=== PATIENT | female | born 1995 | race Caucasian/White ===

== ENCOUNTER 2016-09-12 16:45 | Emergency (ER) | payer OTHER ==
--- NOTE | 2016-09-12 19:18 | DIAGNOSTIC IMAGING REPORT ---
PROCEDURE: US ABDOMEN ULTRASOUND-LIMITED INDICATION: EPIGASTRIC ABDOMINAL PAIN TECHNIQUE: Friedman scale and color Doppler sonographic images of the abdomen were obtained. COMPARISON: None. FINDINGS: Gallbladder is normal. No evidence of gallstones. Common duct is normal (3 mm). Portions of the liver, pancreas, and right kidney are seen, and are normal. IMPRESSION: 1. Negative ultrasound of the gallbladder and right upper quadrant.
--- NOTE | 2016-09-12 20:33 | DIAGNOSTIC IMAGING REPORT ---
PROCEDURE: CT ABD/PELVIS WITH CONTRAST INDICATION: Abdominal pain. Nausea and vomiting. Elevated white blood count (19,000). TECHNIQUE: 95 ml of Isovue 300 were injected intravenously and axial images were obtained of the entire abdomen and pelvis with sagittal and coronal reformations. COMPARISON: Comparison is made to ultrasound of the gallbladder and right upper quadrant in the day (09/12/2016). FINDINGS: ABDOMEN: Gallbladder, liver, spleen, pancreas, kidneys, and aorta are normal. Mild increased fluid in the distal small bowel and colon. Bowel pattern is otherwise normal, including appendix. PELVIS: There is a partially collapsed 1.2 cm left ovarian cyst with small amount of free fluid. Uterus and adnexal structures are otherwise normal. IMPRESSION: 1. Mild increased fluid in the distal small bowel and colon. While this may be normal, consider enterocolitis. 2. There is a 1.2 cm partially collapsed left ovarian cyst with small amount of free fluid (may represent incidental finding). 3. Otherwise negative CT abdomen and pelvis. 4. Findings discussed Dr. Choco Graves. All CT scans at this facility use dose modulation, iterative reconstruction, and/or weight-based dosing when appropriate to reduce radiation dose to as low as reasonably achievable.
--- NOTE | 2016-09-12 21:32 | ED CLINICAL REPORT ---
Clinical Report - Physicians/Mid Levels [facility] [address] [place] [address] 09/12/2016 16:47 Patient: RACHID JULES Arrived- By private vehicle. Historian- patient. HISTORY OF PRESENT ILLNESS Chief Complaint: ABDOMINAL PAIN. This started today and is still present and worsening. It was gradual in onset and has been constant but is not gone now. At its maximum, severity described as moderate. When seen in the E.D., severity described as moderate. Modifying factors- worsened by movement. Relieved by rest. It is described as sharp and it is described as located in the epigastric area. The patient has had nausea. No vomiting or diarrhea. No recent travel. Similar symptoms previously: None. Recent medical care: Not recently seen/assessed. REVIEW OF SYSTEMS No constipation, black stools, hematemesis, bloody stools or fever. No headache or chest pain. She has had skin rash. All systems otherwise negative, except as recorded above. PAST HISTORY See nurses notes. Medications: None. Allergies: No Known Drug Allergy. SOCIAL HISTORY Smoker- current status unknown. Never smoker. History of occasional drug use: marijuana. No alcohol use. No recent travel. Is a local resident. FAMILY HISTORY No family history of gall bladder problems. ADDITIONAL NOTES The nursing notes have not been reviewed. PHYSICAL EXAM Vital Signs: 09/12/2016 16:58 BP: 125/77. 09/12/2016 16:51 HR: 98. RR: 20. O2 saturation: 100%. Temp: 98.1 F. Pain level now: 8/10. Blood pressure normal. Oxygen saturation normal. Appearance: Alert. Oriented X3. No acute distress. Eyes: Pupils equal, round and reactive to light. Eyes normal inspection. ENT: Ears normal. Nose normal. Pharynx normal. Neck: Normal inspection. Neck supple. CVS: Normal heart rate and rhythm. Heart sounds normal. Pulses normal. Respiratory: No respiratory distress. Breath sounds normal. Chest nontender. Abdomen: Soft. Mild tenderness in the epigastric area. No guarding, rebound tenderness or Huang's, obturator or psoas sign present. Bowel sounds normal. No organomegaly. No mass. Femoral pulses equal. Back: Normal inspection. Skin: Skin warm and dry. Normal skin color. No rash. Normal skin turgor. Extremities: Extremities exhibit normal ROM. No lower extremity edema. Neuro: Oriented X 3. No motor deficit. No sensory deficit. LABS, X-RAYS, AND EKG Abdominal CT: PROCEDURE: CT ABD/PELVIS WITH CONTRAST INDICATION: Abdominal pain. Nausea and vomiting. Elevated white blood count (19,000). TECHNIQUE: 95 ml of Isovue 300 were injected intravenously and axial images were obtained of the entire abdomen and pelvis with sagittal and coronal reformations. COMPARISON: Comparison is made to ultrasound of the gallbladder and right upper quadrant in the day (09/12/2016). FINDINGS: ABDOMEN: Gallbladder, liver, spleen, pancreas, kidneys, and aorta are normal. Mild increased fluid in the distal small bowel and colon. Bowel pattern is otherwise normal, including appendix. PELVIS: There is a partially collapsed 1.2 cm left ovarian cyst with small amount of free fluid. Uterus and adnexal structures are otherwise normal. IMPRESSION: 1. Mild increased fluid in the distal small bowel and colon. While this may be normal, consider enterocolitis. 2. There is a 1.2 cm partially collapsed left ovarian cyst with small amount of free fluid (may represent incidental finding). 3. Otherwise negative CT abdomen and pelvis. Study type: abdomen and pelvis. Abdominal CT performed with IV contrast. The study was independently viewed by me and interpreted by the radiologist. The study was discussed with the radiologist (via phone and pacs). Abdominal Sonogram: (no signs of acute cholecystitis. no stones.). The study was independently viewed by me and interpreted contemporaneously by me. Study included the gallbladder. Laboratory Tests: UA-Culture if indicated: (YEN: 09/12/2016 16:53) ( MsgRcvd 09/12/2016 17:30) Final results Test Result Flag Units (Reference) URINE COLOR YELLOW URINE APPEARANCE SL CLOUDY URINE GLUCOSE NEGATIVE (NEGATIVE) URINE BILIRUBIN NEGATIVE (NEGATIVE) URINE KETONE 3+ (NEGATIVE) URINE SPECIFIC GRAVITY 1.025 (1.010-1.030) URINE PH 6.0 (5.0-8.0) URINE PROTEIN NEGATIVE (NEGATIVE) URINE UROBILINOGEN 0.2 EU/dL (0.2-1.0) URINE NITRITE NEGATIVE (NEGATIVE) URINE BLOOD 1+ (NEGATIVE) URINE LEUK ESTERASE TRACE (NEGATIVE) URINE RBC 1-3 rbc/hpf (0-1) URINE WBC 3-5 wbc/hpf (0-1) URINE EPITHELIAL CELLS >15 EPI/hpf (0-5) URINE BACTERIA MODERATE (2+ TO 3+) (NONE SEEN) URINE COMMENT CULTURE INDICATED 1+ MUCUSURINE CULTURES ARE SET-UP BASED ON THE FOLLOWING CRITERIA:POSITIVE NITRITEPOSITIVE LEUKOCYTE ESTERASEGREATER THAN 10 WHITE BLOOD CELLSMODERATE (2+) OR GREATER BACTERIA CBC w Diff: (EYN: 09/12/2016 17:00) ( MsgRcvd 09/12/2016 18:10) Final results Test Result Flag Units (Reference) WHITE BLOOD COUNT 19.0 H K/uL (4.5-11.5) RED BLOOD COUNT 5.29 H M/uL (4.00-5.20) HEMOGLOBIN 15.9 gm/dL (12.0-16.0) HEMATOCRIT 48.3 H % (36.0-46.0) MEAN CELL VOLUME 91 fL (80-100) MEAN CORPUSCULAR HGB 30 pg (26-34) MEAN CORPUSCULAR HGB CONC 33 g/dL (31-37) RED CELL DISTRIBUTION WIDTH 13.1 % (11.6-14.8) PLATELET COUNT 348 K/uL (150-400) NEUTROPHIL % 91.8 H % (50-75) LYMPH % 4.3 L % (25-40) MONO % 1.4 L % (3-14) EOSINOPHIL % 2.4 % (0-4) BASOPHIL % 0.1 % (0-2) CMP: (YEN: 09/12/2016 17:00) ( MsgRcvd 09/12/2016 18:46) Final results Test Result Flag Units (Reference) GLUCOSE 90 mg/dL (70-110) BUN 16 mg/dL (7-18) CREATININE 0.6 mg/dL (0.6-1.3) Estimated GFR >60 mL/min Estimated GFR- >60 mL/min Note: Persistent reduction over 3 months in eGFR<60 mL/min/1.73 m2 defines CKD. Patients with eGFR values>=60 mL/min/1.73 m2 may also have CKD if evidence ofpersistent proteinuria. Additional information may be foundat [email or web address].org. SODIUM 140 mmol/L (136-145) POTASSIUM 3.8 mmol/L (3.5-5.1) CHLORIDE 105 mmol/L (98-107) CARBON DIOXIDE 24 mmol/L (21-32) CALCIUM 8.6 mg/dL (8.5-10.1) TOTAL PROTEIN 7.6 g/dL (6.4-8.2) ALBUMIN 4.2 g/dL (3.3-5.0) BILIRUBIN, TOTAL 0.6 mg/dL (0.0-1.0) ALKALINE PHOSPHATASE 67 U/L (46-116) AST (SGOT) 11 L U/L (15-37) ALT (SGPT) 20 U/L (12-78) LIPASE 95 U/L (73-393) BETA HCG, QUANTITATIVE <1 mIU/mL REFERENCE RANGE:Adult Males: <2 mIU/mLNon- Females: <6 mIU/mL Females:Approximate Approximate hCGGestational Age Range (mIU/mL) 0-1 week 0-501-2 weeks 40-3002-3 weeks 100-84462-4 weeks 500-73811-2 months 5,000-200,0002-3 months 10,000-100,0002nd trimester 3,000-50,0003rd trimester 1,000-50,000 Culture, Strep Screen: (YEN: 09/12/2016 21:07) ( MsgRcvd 09/12/2016 21:26) Final results Test Result Flag Units (Reference) RAPID STREP SCREEN - THROAT CALLED TO: HEMAL@2125 -- DATE: 09/12/16 POSITIVE SCREEN: RAPID STREP SCREEN: POSITIVE FOR GROUP A STREP . PROGRESS AND PROCEDURES Course of Care: the patient is a pleasant 21 yo female presenting for evaluation of abdominal pain. Pain is in the epigastric region on history. This time differenial diagnosis includes biliary colic, gastritis, acute cholecystitis, pancreatitis, PUD. Work ordered. Patient agreeable to plan. Morphine for pain and zofran for nausea ordered. Patient's work up shows no asigns of stone or acute gilda. Lab test show significant wbc. Patient still in pain and looks uncomfortable. Had discussion with patient in regards to work up and elevated white blood cell count. Discussed possibility of atypical appy presentation. Patient agreeable to CT scan given the risk and benefits. CT scan ordered. Ptaient's CT scan does not show any acute abnormalities that would adequately explain pain symptoms. patient is still in distress. Had discussion about other options and admission. Had further discussion about additional symptoms. Patient did mention having a sore throat. Occasionally patient's will have abdominal pain with a sore throat. No exudates were found on exam however due to presentation, would be worth evaluation. Rapid strep came back positive. Patient provided abx and had discussion about strep throat presentations. Do not feel patient has more sinister etiology for pain symptoms today. She is non-toxic and feels better after toradol was given, which was initially held due to concerns about possible surgical abdomen. Discussed with patient work up, diagnosis, home care, follow up, and return precautions. All questions answered. Patient expressed understanding of these instructions and was agreeable to them. Disposition: Discharged. Condition: good. CLINICAL IMPRESSION Acute epigastric abdominal pain. 09/12/2016 20:13 HR: 99. O2 saturation: 97%. 09/12/2016 19:24 BP: 110/61. HR: 99. RR: 20. O2 saturation: 98%. Mild nausea. Blood pressure normal. Oxygen saturation normal. Moderate leukocytosis. No bandemia. Acute streptococcal pharyngitis INSTRUCTIONS Warnings: GENERAL WARNINGS: Return or contact your physician immediately if your condition worsens or changes unexpectedly, if not improving as expected, or if other problems arise. SPECIFICALLY, return if you develop pain, fever, vomiting, the inability to keep fluids down, blood in vomitus, blood in diarrhea, fainting or lightheadedness. Your Current Medications: CONTINUE TAKING THE FOLLOWING MEDICATIONS: None*. Prescription Medications: Hydrocodone/APAP 5mg / 325mg: take 1 orally every 6 hours as needed for pain. Dispense twelve (12). No refill. Motrin 600 mg tablets: take 1 tablet orally every 6 hours as needed for pain or fever. Dispense thirty (30). No refill. Substitution is permissible. (take with food) Penicillin V 500 mg: take 1 tab orally every 12 hours for 10 days. Dispense twenty (20). No refills. (recheck today's concerns) Follow-up: Return to the emergency department as needed. Follow up with your doctor in three days. Reason for referral: recheck today's concerns. Summary of care provided to patient and family via paper. Screening today revealed the patient's blood pressure to be in the normal range. The patient should follow up with a primary care provider for blood pressure management. Understanding of the discharge instructions verbalized by patient and parent. (Electronically signed by Choco Graves Dr. 09/18/2016 14:58)
--- NOTE | 2016-09-12 21:32 | ED NURSING NOTES ---
Clinical Report - Nurses [facility] [address] [place] [address] 09/12/2016 16:47 Patient: RACHID JULES TRIAGE Acuity: LEVEL 3. Chief Complaint: ABDOMINAL PAIN, NAUSEA, VOMITING and DIARRHEA. Alert. No acute distress. --16:57 Matteo Galicia R.N. 16:51 09/12/16. HR: 98. RR: 20. O2 saturation: 100%. Temp: 98.1 F (oral). Pain level now: 8/10. --16:57 Matteo Galicia R.N. 16:58 09/12/16. BP: 125/77. --16:58 Matteo Galicia R.N. Weight: 97.5 kg stated. Height/Length: 64 inches Per Patient. BMI: 36.9. --16:56 Matteo Galicia R.N. Medications None. --16:54 Matteo Galicia R.N. Medication/allergy information source: the patient. --16:57 Matteo Galicia R.N. Allergies No Known Drug Allergy. --16:54 Matteo Galicia R.N. History Arrived by private vehicle. Historian: patient. Accompanied by father. Primary physician (none). This started today. Describes the quality as "pain" and sharp. Relates location as generalized across abdomen and in the periumbilical area. Notes pain level as 8/10 at maximum. Reports last BM was today. 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 PAST MEDICAL HX: Immunizations: up-to-date. Last normal menstrual period- Aug 21 2016. Sexual history - sexually active. Uses condoms. SOCIAL HX: Current every day light tobacco smoker (cigarette)- less than 1/2 a pack per day. History of weekly drug use: marijuana. No alcohol use. No recent travel. FALL RISK ASSESSMENT: Fall risk assessment completed. No fall risk identified. NUTRITIONAL RISK ASSESSMENT: The nutritional risk assessment revealed no deficiencies. FUNCTIONAL ASSESSMENT: Functional assessment: no impairments noted. LEARNING NEEDS ASSESSMENT: The learning needs assessment revealed no barriers. SKIN INTEGRITY ASSESSMENT: Skin integrity risk assessment completed. No skin integrity risk identified. --16:57 Matteo Galicia R.N. Assessment GENERAL / NEURO / PSYCH: Alert. Oriented X 4. Appears in no acute distress. Appears in pain. RESPIRATORY: Respirations not labored. CVS: Capillary refill less than 2 seconds. GI / : Abdomen soft. Abdominal tenderness. SKIN: Mucous membranes are pink. Skin is warm and dry. --16:57 Matteo Galicia R.N. Interventions ID band on patient. To treatment room. --16:57 Matteo Galicia R.N. PHYSICAL ASSESSMENT 16:58 09/12/16. Ambulatory to room. GENERAL / NEURO / PSYCH: Alert. Oriented X 4. Appears in no acute distress. Appears in pain and anxious. HEENT: Mucous membranes are pink. RESPIRATORY: Respirations not labored. CVS: Capillary refill less than 2 seconds. GI / : Abdomen soft. Abdominal tenderness. SKIN: Skin is pale. Skin is warm and dry. --16:58 Matteo Galicia R.N. NURSING PROGRESS NOTES The initial plan of care for this patient includes an assessment with efforts to address the presence of pain. This plan of care was discussed with the patient. Patient gowned. Head of bed elevated. Warming measures: blanket applied. Reassurance given. Patient identifiers checked. Call light placed in reach. Side rails up x 1. Bed placed in lowest position. Brakes of bed on. Patient ready for evaluation- chart flagged and ED physician and IDENTIFICATION OFFICER notified. --16:59 Matteo Galicia R.N. 16:59 09/12/16. Checked patient name and birthdate: patient confirmed. Instructions provided to collect clean catch urine and patient verbalized understanding. Clean catch urine collected with return of yellow-colored clear urine; sample sent to lab for urinalysis and HCG. Specimen labeled in the presence of the patient. --16:59 Matteo Galicia R.N. 17:26 09/12/2016 Site #1 started via IV in the right forearm with an 20g angiocath, with aseptic technique and good blood return; two attempts. Saline lock flushed with 10 mL saline. --17:26 Matteo Galicia R.N. 17:27 09/12/2016 Zofran (Ondansetron HCl) IVP 4 mg given over 2 minute(s) via site #1. Allergies verified and confirmed 5 rights. IV patency established. IV site checked: no pain, redness, or swelling. IV flushed thoroughly pre- and post-medication administration. IVP given by RN. --17:27 Matteo Galicia R.N. 17:28 09/12/2016 Morphine IVP 4 mg given over 2 minute(s) via site #1. Allergies verified, confirmed 5 rights and sedative warning given to the patient. IV patency established. IV site checked: no pain, redness, or swelling. IV flushed thoroughly pre- and post-medication administration. IVP given by RN. --17:28 Matteo Galicia R.N. 17:31 09/12/16. copier and printer field technician at the patient's bedside. --17:31 Matteo Galicia R.N. 17:43 09/12/16. radiology special procedure tech at the patient's bedside. --17:43 Matteo Galicia R.N. 19:06 09/12/16. Care transferred and report given (BAILEY Love). --19:06 Matteo Galicia R.N. 19:16 09/12/16. BP: 103/64. HR: 98. RR: 16. O2 saturation: 100% on room air. Temp: 99.6 F (oral). Pain level now: 7/10. --19:17 Matteo Galicia R.N. Care transferred and report received (report received from matteo). --19:20 Ivan Morgan R.N. 19:24 09/12/2016 Morphine IVP 4 mg given over 2 minute(s) via site #1. Allergies verified, confirmed 5 rights and sedative warning given to the patient. IV patency established. IV site checked: no pain, redness, or swelling. IV flushed thoroughly pre- and post-medication administration. IVP given by RN. --19:24 Ivan Morgan R.N. 19:24 09/12/16. BP: 110/61. HR: 99. RR: 20. O2 saturation: 98%. --19:27 Ivan Morgan R.N. 20:13 09/12/16. HR: 99. O2 saturation: 97%. --20:13 Ivan Morgan R.N. 21:19 09/12/2016 Toradol IVP 30 mg given over 2 minute(s) via site #1. Allergies verified and confirmed 5 rights. IV patency established. IV site checked: no pain, redness, or swelling. IV flushed thoroughly pre- and post-medication administration. IVP given by RN. --21:19 Ivan Morgan R.N. 21:25 09/12/2016 Tylenol (Acetaminophen) PO 650 mg given. Allergies verified and confirmed 5 rights. --21:25 Ivan Morgan R.N. 21:45 09/12/2016 Penicillin V Potassium PO Tablets 500 mg given. Allergies verified and confirmed 5 rights. --21:49 Jacqueline Reyna R.N. DISPOSITION / DISCHARGE 21:49 09/12/2016 Site #1 removed upon discharge. Catheter intact. Manual pressure and bandage applied. --21:49 Jacqueline Reyna R.N. 21:49 09/12/16. BP: 118/70. HR: 99. RR: 16. O2 saturation: 100% on room air. Temp: deferred. Griffith-Tyler pain scale: 8/10. --21:50 Jacqueline Reyna R.N. Locked/Released at 09/12/2016 22:33 by Ivan Morgan R.N.
--- NOTE | 2016-09-12 21:32 | ED ORDER SUMMARY ---
..... Patient: RACHID JULES OrderSheet [facility] VisitID: [id number] [place] [address] 21y, F Registration Date/Time: 09/12/2016 ORDER SHEET Weight: 97.5 kg (stated) Allergies: No Known Drug Allergy GENERAL ORDERS: US Abdomen Limited (No) Urgent (17:10 09/12/2016 Clem Avalos) (Ack 17:13 NHouse ER Tech1) (18:14 NHouse ER Tech1) CBC w Diff Urgent (17:11 09/12/2016 Clem Avalos) (Ack 17:13 NHouse ER Tech1) (17:28 MWinterer R.N.) CMP Urgent (17:11 09/12/2016 Clem Avalos) (Ack 17:13 NHouse ER Tech1) (17:28 MWinterer R.N.) UA-Culture if indicated Urgent (17:11 09/12/2016 Clem Avalos) (Ack 17:13 NHouse ER Tech1) (17:28 MWinterer R.N.) Lipase Urgent (17:11 09/12/2016 Clem Avalos) (Ack 17:13 NHouse ER Tech1) (17:28 MWinterer R.N.) Serum Quantitative Urgent (17:11 09/12/2016 Clem Avalos) (Ack 17:13 NHouse ER Tech1) (17:28 MWinterer R.N.) CT Abd/Pel w Cont (No) (N/A) Urgent (19:20 09/12/2016 Clem Avalos) (Ack 19:23 NHouse ER Tech1) (20:03 RFay) Culture, Strep Screen Urgent (21:04 09/12/2016 Clem Avalos) (Ack 21:22 NHouse ER Tech1) (21:42 RCollier R.N.) MEDICATION ORDERS: Tylenol PO 650 mg (NOW) (21:22 09/12/2016 Clem Avalos) (21:25 DBeyer R.N.) Penicillin V Potassium PO 500 mg (NOW) (21:30 09/12/2016 Clem Avalos) (Ack 21:41 RCollier R.N.) (21:49 RCollier R.N.) IV FLUIDS: Morphine IV 4 mg (HIGH ALERT MEDICATION, NOW) (17:11 09/12/2016 Clem Avalos) (Ack 17:13 MWinterer R.N.) (17:28 MWinterer R.N.) Zofran IV 4 mg (NOW) (17:11 09/12/2016 Clem Avalos) (Ack 17:14 MWinterer R.N.) (17:27 MWinterer R.N.) Morphine IV 8 mg (HIGH ALERT MEDICATION, NOW) (19:20 09/12/2016 lCem Avalos) (19:24 DBeyer R.N.) Toradol IV 30 mg (NOW) (21:05 09/12/2016 Clem Avalos) (21:19 DBeyer R.N.) ORDER SHEET NOTES: [Electronically signed by Ivan Morgan R.N. (22:33 09/12/2016)] [Electronically signed by Choco Graves Dr. (14:58 09/18/2016)] [Electronically locked/signed by Ivan Morgan R.N. (22:33 09/12/2016)]
--- NOTE | 2016-09-12 21:32 | ED NURSING NOTES ---
Clinical Report - Nurses [facility] [address] [place] [address] 09/12/2016 16:47 Patient: RACHID JULES TRIAGE Acuity: LEVEL 3. Chief Complaint: ABDOMINAL PAIN, NAUSEA, VOMITING and DIARRHEA. Alert. No acute distress. --16:57 Matteo Galicia R.N. 16:51 09/12/16. HR: 98. RR: 20. O2 saturation: 100%. Temp: 98.1 F (oral). Pain level now: 8/10. --16:57 Matteo Galicia R.N. 16:58 09/12/16. BP: 125/77. --16:58 Matteo Galicia R.N. Weight: 97.5 kg stated. Height/Length: 64 inches Per Patient. BMI: 36.9. --16:56 Matteo Galicia R.N. Medications None. --16:54 Matteo Galicia R.N. Medication/allergy information source: the patient. --16:57 Matteo Galicia R.N. Allergies No Known Drug Allergy. --16:54 Matteo Galicia R.N. History Arrived by private vehicle. Historian: patient. Accompanied by father. Primary physician (none). This started today. Describes the quality as "pain" and sharp. Relates location as generalized across abdomen and in the periumbilical area. Notes pain level as 8/10 at maximum. Reports last BM was today. 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 PAST MEDICAL HX: Immunizations: up-to-date. Last normal menstrual period- Aug 21 2016. Sexual history - sexually active. Uses condoms. SOCIAL HX: Current every day light tobacco smoker (cigarette)- less than 1/2 a pack per day. History of weekly drug use: marijuana. No alcohol use. No recent travel. FALL RISK ASSESSMENT: Fall risk assessment completed. No fall risk identified. NUTRITIONAL RISK ASSESSMENT: The nutritional risk assessment revealed no deficiencies. FUNCTIONAL ASSESSMENT: Functional assessment: no impairments noted. LEARNING NEEDS ASSESSMENT: The learning needs assessment revealed no barriers. SKIN INTEGRITY ASSESSMENT: Skin integrity risk assessment completed. No skin integrity risk identified. --16:57 Matteo Gailcia R.N. Assessment GENERAL / NEURO / PSYCH: Alert. Oriented X 4. Appears in no acute distress. Appears in pain. RESPIRATORY: Respirations not labored. CVS: Capillary refill less than 2 seconds. GI / : Abdomen soft. Abdominal tenderness. SKIN: Mucous membranes are pink. Skin is warm and dry. --16:57 Matteo Galicia R.N. Interventions ID band on patient. To treatment room. --16:57 Matteo Galicia R.N. PHYSICAL ASSESSMENT 16:58 09/12/16. Ambulatory to room. GENERAL / NEURO / PSYCH: Alert. Oriented X 4. Appears in no acute distress. Appears in pain and anxious. HEENT: Mucous membranes are pink. RESPIRATORY: Respirations not labored. CVS: Capillary refill less than 2 seconds. GI / : Abdomen soft. Abdominal tenderness. SKIN: Skin is pale. Skin is warm and dry. --16:58 Matteo Galicia R.N. NURSING PROGRESS NOTES The initial plan of care for this patient includes an assessment with efforts to address the presence of pain. This plan of care was discussed with the patient. Patient gowned. Head of bed elevated. Warming measures: blanket applied. Reassurance given. Patient identifiers checked. Call light placed in reach. Side rails up x 1. Bed placed in lowest position. Brakes of bed on. Patient ready for evaluation- chart flagged and ED physician and N[employer]ITION [employer]NS[employer] notified. --16:59 Matteo Galicia R.N. 16:59 09/12/16. Checked patient name and birthdate: patient confirmed. Instructions provided to collect clean catch urine and patient verbalized understanding. Clean catch urine collected with return of yellow-colored clear urine; sample sent to lab for urinalysis and HCG. Specimen labeled in the presence of the patient. --16:59 Matteo Galicia R.N. 17:26 09/12/2016 Site #1 started via IV in the right forearm with an 20g angiocath, with aseptic technique and good blood return; two attempts. Saline lock flushed with 10 mL saline. --17:26 Matteo Galicia R.N. 17:27 09/12/2016 Zofran (Ondansetron HCl) IVP 4 mg given over 2 minute(s) via site #1. Allergies verified and confirmed 5 rights. IV patency established. IV site checked: no pain, redness, or swelling. IV flushed thoroughly pre- and post-medication administration. IVP given by RN. --17:27 Matteo Galicia R.N. 17:28 09/12/2016 Morphine IVP 4 mg given over 2 minute(s) via site #1. Allergies verified, confirmed 5 rights and sedative warning given to the patient. IV patency established. IV site checked: no pain, redness, or swelling. IV flushed thoroughly pre- and post-medication administration. IVP given by RN. --17:28 Matteo Galicia R.N. 17:31 09/12/16. classroom technology technician at the patient's bedside. --17:31 Matteo Galicia R.N. 17:43 09/12/16. training technician at the patient's bedside. --17:43 Matteo Galicia R.N. 19:06 09/12/16. Care transferred and report given (BAILEY Love). --19:06 Matteo Galicia R.N. 19:16 09/12/16. BP: 103/64. HR: 98. RR: 16. O2 saturation: 100% on room air. Temp: 99.6 F (oral). Pain level now: 7/10. --19:17 Matteo Galicia R.N. Care transferred and report received (report received from matteo). --19:20 Ivan Morgan R.N. 19:24 09/12/2016 Morphine IVP 4 mg given over 2 minute(s) via site #1. Allergies verified, confirmed 5 rights and sedative warning given to the patient. IV patency established. IV site checked: no pain, redness, or swelling. IV flushed thoroughly pre- and post-medication administration. IVP given by RN. --19:24 Ivan Morgan R.N. 19:24 09/12/16. BP: 110/61. HR: 99. RR: 20. O2 saturation: 98%. --19:27 Ivan Morgan R.N. 20:13 09/12/16. HR: 99. O2 saturation: 97%. --20:13 Ivan Morgan R.N. 21:19 09/12/2016 Toradol IVP 30 mg given over 2 minute(s) via site #1. Allergies verified and confirmed 5 rights. IV patency established. IV site checked: no pain, redness, or swelling. IV flushed thoroughly pre- and post-medication administration. IVP given by RN. --21:19 Ivan Morgan R.N. 21:25 09/12/2016 Tylenol (Acetaminophen) PO 650 mg given. Allergies verified and confirmed 5 rights. --21:25 Ivan Morgan R.N. 21:45 09/12/2016 Penicillin V Potassium PO Tablets 500 mg given. Allergies verified and confirmed 5 rights. --21:49 Jacqueline Reyna R.N. DISPOSITION / DISCHARGE 21:49 09/12/2016 Site #1 removed upon discharge. Catheter intact. Manual pressure and bandage applied. --21:49 Jacqueline Reyna R.N. 21:49 09/12/16. BP: 118/70. HR: 99. RR: 16. O2 saturation: 100% on room air. Temp: deferred. Griffith-Tyler pain scale: 8/10. --21:50 Jacqueline Reyna R.N. Locked/Released at 09/12/2016 22:33 by Ivan Morgan R.N.
--- NOTE | 2016-09-12 21:32 | ED ORDER SUMMARY ---
..... Patient: RACHID JULES OrderSheet [facility] VisitID: [id number] [place] [address] 21y, F Registration Date/Time: 09/12/2016 ORDER SHEET Weight: 97.5 kg (stated) Allergies: No Known Drug Allergy GENERAL ORDERS: US Abdomen Limited (No) Urgent (17:10 09/12/2016 Clem Avalos) (Ack 17:13 NHouse ER Tech1) (18:14 NHouse ER Tech1) CBC w Diff Urgent (17:11 09/12/2016 Clem Avalos) (Ack 17:13 NHouse ER Tech1) (17:28 MWinterer R.N.) CMP Urgent (17:11 09/12/2016 Clem Avalos) (Ack 17:13 NHouse ER Tech1) (17:28 MWinterer R.N.) UA-Culture if indicated Urgent (17:11 09/12/2016 Clem Avalos) (Ack 17:13 NHouse ER Tech1) (17:28 MWinterer R.N.) Lipase Urgent (17:11 09/12/2016 Clem Avalos) (Ack 17:13 NHouse ER Tech1) (17:28 MWinterer R.N.) Serum Quantitative Urgent (17:11 09/12/2016 Clem Avalos) (Ack 17:13 NHouse ER Tech1) (17:28 MWinterer R.N.) CT Abd/Pel w Cont (No) (N/A) Urgent (19:20 09/12/2016 Clem Avalos) (Ack 19:23 NHouse ER Tech1) (20:03 RFay) Culture, Strep Screen Urgent (21:04 09/12/2016 Clem Avalos) (Ack 21:22 NHouse ER Tech1) (21:42 RCollier R.N.) MEDICATION ORDERS: Tylenol PO 650 mg (NOW) (21:22 09/12/2016 Clem Avalos) (21:25 DBeyer R.N.) Penicillin V Potassium PO 500 mg (NOW) (21:30 09/12/2016 Clem Avalos) (Ack 21:41 RCollier R.N.) (21:49 RCollier R.N.) IV FLUIDS: Morphine IV 4 mg (HIGH ALERT MEDICATION, NOW) (17:11 09/12/2016 Clem Avalos) (Ack 17:13 MWinterer R.N.) (17:28 MWinterer R.N.) Zofran IV 4 mg (NOW) (17:11 09/12/2016 Clem Avalos) (Ack 17:14 MWinterer R.N.) (17:27 MWinterer R.N.) Morphine IV 8 mg (HIGH ALERT MEDICATION, NOW) (19:20 09/12/2016 Clem Avalos) (19:24 DBeyer R.N.) Toradol IV 30 mg (NOW) (21:05 09/12/2016 Clem Avalos) (21:19 DBeyer R.N.) ORDER SHEET NOTES: [Electronically signed by Ivan Morgan R.N. (22:33 09/12/2016)] [Electronically signed by Choco Graves Dr. (14:58 09/18/2016)] [Electronically locked/signed by Ivan Morgan R.N. (22:33 09/12/2016)]
--- NOTE | 2016-09-18 14:58 | ED DISCHARGE INSTRUCTIONS ---
Patient: RACHID JULES General Instructions [facility] VisitID: [id number] [place] [address] 21y, F Registration Date/Time: 09/12/2016 Acute epigastric abdominal pain. 09/12/2016 20:13 HR: 99. O2 saturation: 97%. 09/12/2016 19:24 BP: 110/61. HR: 99. RR: 20. O2 saturation: 98%. Mild nausea. Blood pressure normal. Oxygen saturation normal. Moderate leukocytosis. No bandemia. Acute streptococcal pharyngitis INSTRUCTIONS Warnings: GENERAL WARNINGS: Return or contact your physician immediately if your condition worsens or changes unexpectedly, if not improving as expected, or if other problems arise. SPECIFICALLY, return if you develop pain, fever, vomiting, the inability to keep fluids down, blood in vomitus, blood in diarrhea, fainting or lightheadedness. Your Current Medications: CONTINUE TAKING THE FOLLOWING MEDICATIONS: None*. Prescription Medications: Hydrocodone/APAP 5mg / 325mg: take 1 orally every 6 hours as needed for pain. Dispense twelve (12). No refill. Motrin 600 mg tablets: take 1 tablet orally every 6 hours as needed for pain or fever. Dispense thirty (30). No refill. Substitution is permissible. (take with food) Penicillin V 500 mg: take 1 tab orally every 12 hours for 10 days. Dispense twenty (20). No refills. (recheck today's concerns) Follow-up: Return to the emergency department as needed. Follow up with your doctor in three days. Reason for referral: recheck today's concerns. Summary of care provided to patient and family via paper. Screening today revealed the patient's blood pressure to be in the normal range. The patient should follow up with a primary care provider for blood pressure management. Understanding of the discharge instructions verbalized by patient and parent. ADDITIONAL INFORMATION Abdominal Pain, Unknown Cause (Female) The exact cause of your abdominal (stomach) pain is not certain. This does not mean that this is something to worry about, or the right tests were not done. Everyone likes to know the exact cause of the problem, but sometimes with abdominal pain, there is no clear-cut cause, and this could be a good thing. The good news is that your symptoms can be treated, and you will feel better. Your condition does not seem serious now; however, sometimes the signs of a serious problem may take more time to appear. For this reason,it is important for you to watch for any new symptoms, problems,or worsening of your condition. Over the next few days, the abdominal pain may come and go, or be continuous. Other common symptoms can include nausea and vomiting. Sometimes it can be difficult to tell if you feel nauseous, you may just feel bad and not associate that feeling with nausea. Constipation, diarrhea, and a fever may go along with the pain. The pain may continue even if treated correctly over the following days. Depending on how things go, sometimes the cause can become clear and may require further or different treatment. Additional evaluations, medications, or tests may be needed. Home care Your health care provider may prescribe medications for pain, symptoms, or an infection. Follow the health care provider's instructions for taking these medications. General care Rest until your next exam. No strenuous activities. Try to find positions that ease discomfort. A small pillow placed on the abdomen may help relieve pain. Something warm on your abdomen (such as a heating pad) may help, but be careful not to burn yourself. Diet Do not force yourself to eat, especially if having cramps, vomiting, or diarrhea. Water is important so you do not get dehydrated. Soup may also be good. Sports drinks may also help, especially if they are not too acidic. Make sure you don't drink sugary drinks as this can make things worse. Take liquids in small amounts. Do not guzzle them. Caffeine sometimes makes the pain and cramping worse. Avoid dairy products if you have vomiting or diarrhea. Don't eat large amounts at a time. Wait a few minutes between bites. Eat a diet low in fiber (called a low-residue diet). Foods allowed include refined breads, white rice, fruit and vegetable juices without pulp, tender meats. These foods will pass more easily through the intestine. Avoid whole-grain foods, whole fruits and vegetables, meats, seeds and nuts, fried or fatty foods, dairy, alcohol and spicy foods until your symptoms go away. Follow-up care Follow up with your health care provider as instructed, or if your pain does not begin to improve in the next 24 hours. When to seek medical care Seek prompt medical care if any of the following occur: Pain gets worse or moves to the right lower abdomen New or worsening vomiting or diarrhea Swelling of the abdomen Unable to pass stool for more than three days Fever of 100.4F (38C) or higher, or as directed by your healthcare provider. Blood in vomit or bowel movements (dark red or black color) Jaundice (yellow color of eyes and skin) Weakness, dizziness Chest, arm, back, neck or jaw pain Unexpected vaginal bleeding or missed period Call 911 Call emergency services if any of the following occur: Trouble breathing Confusion Fainting or loss of consciousness Rapid heart rate Seizure Pharyngitis: Strep [Confirmed] Your test for strep throat was positive. Strep throat is a contagious illness. It is spread by coughing, kissing or by touching others after touching your mouth or nose. Symptoms include throat pain which is worse with swallowing, aching all over, headache and fever. You will be treated with an antibiotic which should make you start to feel better within 1-2 days. Home Care: Rest at home and drink plenty of fluids to avoid dehydration. No school or work for the first two days on antibiotics. You will not be contagious after this time and if you are feeling better, you can return to school or work. Take your antibiotics for a full 10 days, even if you feel better after the first few days of treatment. This is very important to prevent heart or kidney disease that can result as a complication of untreated strep throat infection. Children: Use acetaminophen (Tylenol) for fever, fussiness or discomfort. In infants over six months of age, you may use ibuprofen (Children's Motrin) instead of Tylenol. [NOTE: If your child has chronic liver or kidney disease or ever had a stomach ulcer or GI bleeding, talk with your doctor before using these medicines.] (Aspirin should never be used in anyone under 18 years of age who is ill with a fever. It may cause severe liver damage.)Adults: You may use acetaminophen (Tylenol) or ibuprofen (Motrin, Advil) to control pain or fever, unless another medicine was prescribed for this. [NOTE: If you have chronic liver or kidney disease or ever had a stomach ulcer or GI bleeding, talk with your doctor before using these medicines.] Throat lozenges or sprays (Chloraseptic and others) will reduce pain. Gargling with warm salt water will also reduce throat pain. Dissolve 1/2 teaspoon of salt in 1 glass of warm water. This is especially useful just before meals. Follow Up with your doctor or as directed by our staff if you are not improving over the next week. Get Prompt Medical Attention if any of the following occur: Fever of 100.4F (38C) oral or higher, not better with fever medication New or worsening ear pain, sinus pain or headache Painful lumps in the back of your neck Unable to swallow liquids or open your mouth wide due to throat pain Trouble breathing or noisy breathing Muffled voice New rash Hydrocodone Bitartrate, Acetaminophen Oral tablet What is this medicine? ACETAMINOPHEN; HYDROCODONE (a set a CORNELIO mariusz fen; daniel droe KOE done) is a pain reliever. It is used to treat mild to moderate pain. How should I use this medicine? Take this medicine by mouth. Swallow it with a full glass of water. Follow the directions on the prescription label. If the medicine upsets your stomach, take the medicine with food or milk. Do not take more than you are told to take. Talk to your dairy lab technician regarding the use of this medicine in children. This medicine is not approved for use in children. What side effects may I notice from receiving this medicine? Side effects that you should report to your doctor or health health care marketing specialist as soon as possible: allergic reactions like skin rash, itching or hives, swelling of the face, lips, or tongue breathing problems confusion feeling faint or lightheaded, falls stomach pain yellowing of the eyes or skin Side effects that usually do not require medical attention (report to your doctor or health health care marketing specialist if they continue or are bothersome): nausea, vomiting stomach upset What may interact with this medicine? alcohol antihistamines isoniazid medicines for depression, anxiety, or psychotic disturbances medicines for sleep muscle relaxants naltrexone narcotic medicines (opiates) for pain phenobarbital ritonavir tramadol What if I miss a dose? If you miss a dose, take it as soon as you can. If it is almost time for your next dose, take only that dose. Do not take double or extra doses. Where should I keep my medicine? Keep out of the reach of children. This medicine can be abused. Keep your medicine in a safe place to protect it from theft. Do not share this medicine with anyone. Selling or giving away this medicine is dangerous and against the law. Store at room temperature between 15 and 30 degrees C (59 and 86 degrees F). Protect from light. Keep container tightly closed. Throw away any unused medicine after the expiration date. Discard unused medicine and used packaging carefully. Pets and children can be harmed if they find used or lost packages. What should I tell my health care provider before I take this medicine? They need to know if you have any of these conditions: brain tumor Crohn's disease, inflammatory bowel disease, or ulcerative colitis drink more than 3 alcohol-containing drinks per day drug abuse or addiction head injury heart or circulation problems kidney disease or problems going to the bathroom liver disease lung disease, asthma, or breathing problems an unusual or allergic reaction to acetaminophen, hydrocodone, other opioid analgesics, other medicines, foods, dyes, or preservatives or trying to get breast-feeding What should I watch for while using this medicine? Tell your doctor or health health care marketing specialist if your pain does not go away, if it gets worse, or if you have new or a different type of pain. You may develop tolerance to the medicine. Tolerance means that you will need a higher dose of the medicine for pain relief. Tolerance is normal and is expected if you take the medicine for a long time. Do not suddenly stop taking your medicine because you may develop a severe reaction. Your body becomes used to the medicine. This does NOT mean you are addicted. Addiction is a behavior related to getting and using a drug for a non-medical reason. If you have pain, you have a medical reason to take pain medicine. Your doctor will tell you how much medicine to take. If your doctor wants you to stop the medicine, the dose will be slowly lowered over time to avoid any side effects. You may get drowsy or dizzy when you first start taking the medicine or change doses. Do not drive, use machinery, or do anything that may be dangerous until you know how the medicine affects you. Stand or sit up slowly. There are different types of narcotic medicines (opiates) for pain. If you take more than one type at the same time, you may have more side effects. Give your health care provider a list of all medicines you use. Your doctor will tell you how much medicine to take. Do not take more medicine than directed. Call emergency for help if you have problems breathing. The medicine will cause constipation. Try to have a bowel movement at least every 2 to 3 days. If you do not have a bowel movement for 3 days, call your doctor or health health care marketing specialist. Too much acetaminophen can be very dangerous. Do not take Tylenol (acetaminophen) or medicines that contain acetaminophen with this medicine. Many non-prescription medicines contain acetaminophen. Always read the labels carefully. Ibuprofen Oral tablet What is this medicine? IBUPROFEN (eye BYOO proe fen) is a non-steroidal anti-inflammatory drug (NSAID). It is used for dental pain, fever, headaches or migraines, osteoarthritis, rheumatoid arthritis, or painful monthly periods. It can also relieve minor aches and pains caused by a cold, flu, or sore throat. How should I use this medicine? Take this medicine by mouth with a glass of water. Follow the directions on the prescription label. Take this medicine with food if your stomach gets upset. Try to not lie down for at least 10 minutes after you take the medicine. Take your medicine at regular intervals. Do not take your medicine more often than directed. A special MedGuide will be given to you by the pharmacist with each prescription and refill. Be sure to read this information carefully each time. Talk to your dairy lab technician regarding the use of this medicine in children. Special care may be needed. What side effects may I notice from receiving this medicine? Side effects that you should report to your doctor or health health care marketing specialist as soon as possible: allergic reactions like skin rash, itching or hives, swelling of the face, lips, or tongue black or bloody stools, blood in the urine or in vomit breathing problems changes in vision chest pain general ill feeling or flu-like symptoms nausea or vomiting redness, blistering, peeling or loosening of the skin, including inside the mouth slurred speech or weakness on one side of the body stomach pain unexplained weight gain or swelling unusually weak or tired yellowing of eyes or skin Side effects that usually do not require medical attention (report to your doctor or health health care marketing specialist if they continue or are bothersome): constipation or diarrhea dizziness gas or heartburn stomach upset What may interact with this medicine? Do not take this medicine with any of the following medications: cidofovir ketorolac methotrexate pemetrexed This medicine may also interact with the following medications: alcohol aspirin diuretics lithium other drugs for inflammation like prednisone warfarin What if I miss a dose? If you miss a dose, take it as soon as you can. If it is almost time for your next dose, take only that dose. Do not take double or extra doses. Where should I keep my medicine? Keep out of the reach of children. Store at room temperature between 15 and 30 degrees C (59 and 86 degrees F). Keep container tightly closed. Throw away any unused medicine after the expiration date. What should I tell my health care provider before I take this medicine? They need to know if you have any of these conditions: asthma cigarette smoker drink more than 3 alcohol containing drinks a day heart disease or circulation problems such as heart failure or leg edema (fluid retention) high blood pressure kidney disease liver disease stomach bleeding or ulcers an unusual or allergic reaction to ibuprofen, aspirin, other NSAIDS, other medicines, foods, dyes, or preservatives or trying to get breast-feeding What should I watch for while using this medicine? Tell your doctor or healthcare professional if your symptoms do not start to get better or if they get worse. This medicine does not prevent heart attack or stroke. In fact, this medicine may increase the chance of a heart attack or stroke. The chance may increase with longer use of this medicine and in people who have heart disease. If you take aspirin to prevent heart attack or stroke, talk with your doctor or health health care marketing specialist. Do not take other medicines that contain aspirin, ibuprofen, or naproxen with this medicine. Side effects such as stomach upset, nausea, or ulcers may be more likely to occur. Many medicines available without a prescription should not be taken with this medicine. This medicine can cause ulcers and bleeding in the stomach and intestines at any time during treatment. Ulcers and bleeding can happen without warning symptoms and can cause . To reduce your risk, do not smoke cigarettes or drink alcohol while you are taking this medicine. You may get drowsy or dizzy. Do not drive, use machinery, or do anything that needs mental alertness until you know how this medicine affects you. Do not stand or sit up quickly, especially if you are an older patient. This reduces the risk of dizzy or fainting spells. This medicine can cause you to bleed more easily. Try to avoid damage to your teeth and gums when you brush or floss your teeth. Penicillin V Potassium Oral tablet What is this medicine? PENICILLIN V (pen i SILL in V) is a penicillin antibiotic. It is used to treat certain kinds of bacterial infections. It will not work for colds, flu, or other viral infections. How should I use this medicine? Take this medicine by mouth with a full glass of water. Follow the directions on the prescription label. Take your medicine at regular intervals. Do not take your medicine more often than directed. Take all of your medicine as directed even if you think your are better. Do not skip doses or stop your medicine early. Talk to your dairy lab technician regarding the use of this medicine in children. While this drug may be prescribed for selected conditions, precautions do apply. What side effects may I notice from receiving this medicine? Side effects that you should report to your doctor or health health care marketing specialist as soon as possible: allergic reactions like skin rash or hives, swelling of the face, lips, or tongue breathing problems fever new symptoms of infection redness, blistering, peeling or loosening of the skin, including inside the mouth unusually weak or tired Side effects that usually do not require medical attention (report to your doctor or health health care marketing specialist if they continue or are bothersome): diarrhea headache nausea, vomiting sore mouth or tongue stomach upset What may interact with this medicine? control pills methotrexate other antibiotics probenecid some vaccines What if I miss a dose? If you miss a dose, take it as soon as you can. If it is almost time for your next dose, take only that dose. Do not take double or extra doses. Where should I keep my medicine? Keep out of the reach of children. Store at room temperature between 15 and 30 degrees C (59 and 86 degrees F). Keep container tightly closed. Throw away any unused medicine after the expiration date. What should I tell my health care provider before I take this medicine? They need to know if you have any of these conditions: asthma bowel disease, like colitis eczema kidney disease an unusual or allergic reaction to penicillin, cephalosporins, other antibiotics or medicines, foods, tartrazine or other dyes, or preservatives or trying to get breast-feeding What should I watch for while using this medicine? Tell your doctor or health health care marketing specialist if your symptoms do not improve. Do not treat diarrhea with over the counter products. Contact your doctor if you have diarrhea that lasts more than 2 days or if it is severe and watery. If you have diabetes, you may get a false-positive result for sugar in your urine. Check with your doctor or health health care marketing specialist. control pills may not work properly while you are taking this medicine. Talk to your doctor about using an extra method of control. You have been given the following additional information: Abdominal Pain, Unknown Cause, (Female) Pharyngitis, Strep (Confirmed) Hydrocodone Bitartrate, Acetaminophen Oral tablet Ibuprofen Oral tablet Penicillin V Potassium Oral tablet (Electronically signed by Choco Graves Dr. 09/18/2016 14:58)
--- NOTE | 2016-09-18 14:59 | ED MAR SUMMARY ---
..... Medication Administration Record [facility] [address] [place] [address] Patient: RACHID JULES Visit ID: [id number] 21y, F Weight: 97.5 kg Height/Length: 64 in BMI: 36.9 ALLERGIES: No Known Drug Allergy Given 17:09/12/2016 Enma Galicia R.N. Medication Administered: ZOFRAN [IVP] (ONDANSETRON HCL), Dose: 4 mg IVP over 2 minute(s), Site: #1 right forearm. Medication Ordered: Zofran IV 4 mg (NOW). Given 17:09/12/2016 Enma Galicia R.N. Medication Administered: MORPHINE [IVP], Dose: 4 mg IVP over 2 minute(s), Site: #1 right forearm. Medication Ordered: Morphine IV 4 mg (HIGH ALERT MEDICATION, NOW). Given 19:24 09/12/2016 Ivan Morgan R.N. Medication Administered: MORPHINE [IVP], Dose: 4 mg IVP over 2 minute(s), Site: #1 right forearm. Medication Ordered: Morphine IV 8 mg (HIGH ALERT MEDICATION, NOW). Given :09/12/2016 Ivan Morgan R.N. Medication Administered: TORADOL [IVP], Dose: 30 mg IVP over 2 minute(s), Site: #1 right forearm. Medication Ordered: Toradol IV 30 mg (NOW). Given :25 09/12/2016 Ivan Morgan R.N. Medication Administered: TYLENOL [PO] (ACETAMINOPHEN), Dose: 650 mg PO. Medication Ordered: Tylenol PO 650 mg (NOW). Given :45 09/12/2016 Jacqueline Reyna R.N. Medication Administered: PENICILLIN V POTASSIUM [PO], Dose: 500 mg Tablets PO. Medication Ordered: Penicillin V Potassium PO 500 mg (NOW).
--- NOTE | 2016-09-18 14:59 | ED MED RECONCILIATION SUMMARY ---
Patient: RACHID JULES Medication Reconciliation Report [facility] VisitID: [id number] [place] [address] 21y, F Registration Date/Time: 09/12/2016 Weight: 97.5 kg Height/Length: 64 in. BMI: 36.9 ALLERGIES: No Known Drug Allergy The patient's Home Medications are listed below: NONE. The source(s) of the original Home Medication information: patient The following Medications were given to the patient in the Emergency Department: Zofran [IVP] IVP 4 mg, administered: 09/12/2016 5:27:00 PM Morphine [IVP] IVP 4 mg, administered: 09/12/2016 5:28:00 PM Morphine [IVP] IVP 4 mg, administered: 09/12/2016 7:24:00 PM Toradol [IVP] IVP 30 mg, administered: 09/12/2016 9:19:00 PM Tylenol [PO] PO 650 mg, administered: 09/12/2016 9:25:00 PM Penicillin V Potassium [PO] PO 500 mg, administered: 09/12/2016 9:45:00 PM The following Medications were prescribed to the patient: Hydrocodone/APAP 5mg / 325mg: take 1 orally every 6 hours as needed for pain. Dispense twelve (12). No refill. -- Choco Graves Dr. Motrin 600 mg tablets: take 1 tablet orally every 6 hours as needed for pain or fever. Dispense thirty (30). No refill. Substitution is permissible.(take with food) -- Choco Graves Dr. Penicillin V 500 mg: take 1 tab orally every 12 hours for 10 days. Dispense twenty (20). No refills.(recheck today's concerns) -- Choco Graves Dr.
--- NOTE | 2016-09-18 14:59 | ED MAR SUMMARY ---
..... Medication Administration Record [facility] [address] [place] [address] Patient: RACHID JULES Visit ID: [id number] 21y, F Weight: 97.5 kg Height/Length: 64 in BMI: 36.9 ALLERGIES: No Known Drug Allergy Given 17:09/12/2016 Enma Galicia R.N. Medication Administered: ZOFRAN [IVP] (ONDANSETRON HCL), Dose: 4 mg IVP over 2 minute(s), Site: #1 right forearm. Medication Ordered: Zofran IV 4 mg (NOW). Given 17:09/12/2016 Enma Galicia R.N. Medication Administered: MORPHINE [IVP], Dose: 4 mg IVP over 2 minute(s), Site: #1 right forearm. Medication Ordered: Morphine IV 4 mg (HIGH ALERT MEDICATION, NOW). Given 19:24 09/12/2016 Ivan Morgan R.N. Medication Administered: MORPHINE [IVP], Dose: 4 mg IVP over 2 minute(s), Site: #1 right forearm. Medication Ordered: Morphine IV 8 mg (HIGH ALERT MEDICATION, NOW). Given :09/12/2016 Ivan Morgan R.N. Medication Administered: TORADOL [IVP], Dose: 30 mg IVP over 2 minute(s), Site: #1 right forearm. Medication Ordered: Toradol IV 30 mg (NOW). Given :25 09/12/2016 Ivan Morgan R.N. Medication Administered: TYLENOL [PO] (ACETAMINOPHEN), Dose: 650 mg PO. Medication Ordered: Tylenol PO 650 mg (NOW). Given :45 09/12/2016 Jacqueline Reyna R.N. Medication Administered: PENICILLIN V POTASSIUM [PO], Dose: 500 mg Tablets PO. Medication Ordered: Penicillin V Potassium PO 500 mg (NOW).
--- NOTE | 2016-09-18 14:59 | ED MED RECONCILIATION SUMMARY ---
Patient: RACHID JULES Medication Reconciliation Report [facility] VisitID: [id number] [place] [address] 21y, F Registration Date/Time: 09/12/2016 Weight: 97.5 kg Height/Length: 64 in. BMI: 36.9 ALLERGIES: No Known Drug Allergy The patient's Home Medications are listed below: NONE. The source(s) of the original Home Medication information: patient The following Medications were given to the patient in the Emergency Department: Zofran [IVP] IVP 4 mg, administered: 09/12/2016 5:27:00 PM Morphine [IVP] IVP 4 mg, administered: 09/12/2016 5:28:00 PM Morphine [IVP] IVP 4 mg, administered: 09/12/2016 7:24:00 PM Toradol [IVP] IVP 30 mg, administered: 09/12/2016 9:19:00 PM Tylenol [PO] PO 650 mg, administered: 09/12/2016 9:25:00 PM Penicillin V Potassium [PO] PO 500 mg, administered: 09/12/2016 9:45:00 PM The following Medications were prescribed to the patient: Hydrocodone/APAP 5mg / 325mg: take 1 orally every 6 hours as needed for pain. Dispense twelve (12). No refill. -- Choco Graves Dr. Motrin 600 mg tablets: take 1 tablet orally every 6 hours as needed for pain or fever. Dispense thirty (30). No refill. Substitution is permissible.(take with food) -- Choco Graves Dr. Penicillin V 500 mg: take 1 tab orally every 12 hours for 10 days. Dispense twenty (20). No refills.(recheck today's concerns) -- Choco Graves Dr.
== END 2016-09-12 20:04 | disposition home or self-care (01) ==
LOC: ED SRH 16:45
DX: R10.13 Epigastric pain (principal); J02.0 Streptococcal pharyngitis; D72.829 Elevated white blood cell count, unspecified; R11.0 Nausea; F17.210 Nicotine dependence, cigarettes, uncomplicated
CPT/HCPCS: 90004; 90100; 90154; 90197; 90469; 92235; 95059

== ENCOUNTER 2017-03-03 10:59 | Emergency (ER) | payer OTHER ==
--- NOTE | 2017-03-03 12:16 | ED ORDER SUMMARY ---
..... Patient: RACHID JULES OrderSheet [facility] VisitID: [id number] [place] [address] 22y, F Registration Date/Time: 03/03/2017 ORDER SHEET Weight: 97.5 kg (stated) Allergies: No Known Drug Allergy GENERAL ORDERS: MEDICATION ORDERS: Bactrim DS PO (Tablet 800-160 mg) 1 tab (NOW) (12:14 03/03/2017 Apple AU) (12:19 Yuan Mosqueda) IV FLUIDS: ORDER SHEET NOTES: [Electronically signed by Dai Leiva MD (21:00 03/03/2017)] [Electronically signed by Mega Kamara R.N. (07:08 03/05/2017)] [Electronically locked/signed by Mega Kamara R.N. (07:08 03/05/2017)]
--- NOTE | 2017-03-03 12:16 | ED CLINICAL REPORT ---
Clinical Report - Physicians/Mid Levels [facility] [address] [place] [address] 03/03/2017 11:01 Patient: RACHID JULES Time Seen: 11:24. Arrived- By private vehicle. Historian- patient. HISTORY OF PRESENT ILLNESS Chief Complaint: LESION. This started about 2 weeks ago and is still present. It is described as painful. It has been located on the right index finger. A possible cause has been identified (Pt states she got poked with something--a thorn, perhaps--or sustained a bite.). (patient states that she has had a painful red "bump" on her right index finger which she has been poking with a pin to try to get to drain. Patient states that the bump is not going away and now the area of redness has gotten bigger. She denies any fevers.). Similar symptoms previously: None. Recent medical care: Not recently seen/assessed. REVIEW OF SYSTEMS No fever, chills, sore throat, cough or difficulty breathing. No hoarseness, enlarged lymph nodes, headache, eye irritation or chest pain. No abdominal pain, nausea, diarrhea, difficulty with urination or joint pain. No vomiting. All systems otherwise negative, except as recorded above. PAST HISTORY No known chronic medical problems. Additional Surgeries: no known surgeries. Medications: None. Allergies: No Known Drug Allergy. SOCIAL HISTORY Smoker- current status unknown. History of drug use: marijuana. No alcohol use. ADDITIONAL NOTES The nursing notes have been reviewed. PHYSICAL EXAM Vital Signs: 03/03/2017 11:18 BP: 122/82. HR: 92. RR: 18. O2 saturation: 99%. Temp: 99.3 F. Have been reviewed. Appearance: Alert. Oriented X3. No acute distress. ENT: ( Grossly intact.). Neck: Neck supple. CVS: Pulses normal. Strong peripheral pulses. Respiratory: No respiratory distress. Skin: Skin warm and dry. (Pt has a mildly raised lesion on her R index finger, on the ulnar aspect of the DIP joint. An apical pustule vs empty bulla is noted at the apex, with a 1-cm diameter, erythematous base. Pt is able to move her DIP through partial ROM. No drainage is expressible through the scab at the apex of the lesion. No streaking is noted.). Extremities: (R index finger lesion, as noted above; otherwise unremarkable.). Neuro: No motor deficit. No sensory deficit. LABS, X-RAYS, AND EKG Pulse Oximetry: 03/03/2017 11:18 O2 saturation: 99%. (FIO2 - room air). Interpretation: normal. PROGRESS AND PROCEDURES Course of Care: Pt was given a dose of Bactrim in the ED. I did puncture the white skin at the apex, and injected a small amount of lidocaine. The pocket did fill with lidocaine, but upon expression of the fluid through the puncture site, no purulent material was noted to be mixed with the lidocaine. Patient counseled in person regarding the patient's stable condition, diagnosis and need for follow-up. Concerns were addressed. Old medical records reviewed. Disposition: Discharged. Condition: stable. CLINICAL IMPRESSION Cellulitis of the right index finger. INSTRUCTIONS Warnings: GENERAL WARNINGS: Return or contact your physician immediately if your condition worsens or changes unexpectedly, if not improving as expected, or if other problems arise. Prescription Medications: Bactrim DS 800 mg / 160 mg: take 1 tablet orally every 12 hours for 7 days. No refill. Substitution is permissible. Follow-up: Follow up with your doctor in seven days if not better. Understanding of the discharge instructions verbalized by patient. (Electronically signed by Dai Leiva MD 03/03/2017 21:00)
--- NOTE | 2017-03-03 12:16 | ED NURSING NOTES ---
Clinical Report - Nurses [facility] [address] [place] [address] 03/03/2017 11:01 Patient: RACHID JULES TRIAGE Triage time 11:10 Mar 03 2017. Acuity: LEVEL 4. Chief Complaint: SKIN PROBLEM and TENDER AREA and INSECT BITE CAROLIN COMA SCORE: Carolin Coma Scale: 15- eyes open spontaneously (4); best verbal response- oriented x 4 (5); best motor response- obeys commands (6). --11:21 Mega Kamara R.N. 11:18 03/03/17. BP: 122/82. HR: 92. RR: 18. O2 saturation: 99%. Temp: 99.3 F. Pain level now 8/10. --11:21 Mega Kamara R.N. Weight: 97.5 kg stated. Height/Length: 64 inches Per Patient. BMI: 36.9. --11:17 Mega Kamara R.N. Medications None. --11:19 Mega Kamara R.N. Allergies No Known Drug Allergy. --11:19 Mega Kamara R.N. History Arrived by private vehicle. Historian: patient. Accompanied by family. Reported as located on the right ring finger. Onset. (2 weeks). It is described as painful. No fever, muscle aches, headache, cough or difficulty breathing. No itching or weakness. 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 PAST MEDICAL HX: No history of asthma, diabetes mellitus, heart disease or lung disease. Immunizations: up-to-date. Last normal menstrual period- February 21. SOCIAL HX: Current every day heavy tobacco smoker (cigarette)- less than 1 pack per day. History of drug use: marijuana. No alcohol use. SELF HARM ASSESSMENT: A self harm assessment was performed. The patient answered "no" to the question "Have you recently felt down, depressed, or hopeless?" and "Do you have thoughts of harming or killing yourself?". FALL RISK ASSESSMENT: Fall risk assessment completed. No fall risk identified. NUTRITIONAL RISK ASSESSMENT: The nutritional risk assessment revealed no deficiencies. FUNCTIONAL ASSESSMENT: Functional assessment: no impairments noted. LEARNING NEEDS ASSESSMENT: The learning needs assessment revealed no barriers. ABUSE ASSESSMENT: Abuse assessment: (yes) The patient was asked "Do you feel safe in your home?". SKIN INTEGRITY ASSESSMENT: Skin integrity risk assessment completed. No skin integrity risk identified. --11: Mega Kamara R.N. PROBLEMS: Nausea. Leukocytosis. Pharyngitis. Abdominal Pain. --11:20 Mega Kamara R.N. ADDITIONAL SURGERIES: no known surgeries. Interventions ID band on patient. --11: Mega Kamara R.N. PHYSICAL ASSESSMENT Ambulatory to room. GENERAL / NEURO / PSYCH: Alert. The patient does not appear to be in acute distress. Oriented X 4. HEENT: Pupils equal, round and reactive to light. Mucous membranes are pink. RESPIRATORY: Respirations not labored. Breath sounds within normal limits. CVS: Capillary refill less than 2 seconds. Pulses within normal limits. GI / : Abdomen nontender. SKIN: Skin is warm and dry. Blister present. Swelling present. --11: Mega Kamara R.N. NURSING PROGRESS NOTES The initial plan of care for this patient includes an assessment with efforts to address patient positioning, appropriate ambient lighting and comfortable environmental temperature. Pulse oximeter and NIBP monitor placed on patient. Patient gowned. Reassurance given. Call light placed in reach. Side rails up x 1. Bed placed in lowest position. Brakes of bed on. --11: Mega Kamara R.N. 12:19 03/03/2017 Bactrim DS (Sulfamethoxazole-TMP DS) PO Tablets 1 tab given. Allergies verified and confirmed 5 rights. --12:19 Mega Kamara R.N. DISPOSITION / DISCHARGE Departure time: :Mar 03 2017. Condition at departure: improved. No learning barriers present. Discharge instructions provided and reviewed with the patient. Reviewed warnings. Reviewed medication(s). Treatments reviewed. Reviewed referrals. Patient verbalized understanding. Written instructions provided in [place]. The patient was discharged home and accompanied by parent. She left the Emergency Department ambulatory and via private vehicle. Parent driving. --12:23 Mega Kamara R.N. 11:18 03/03/17. BP: 122/82. HR: 92. RR: 18. O2 saturation: 99%. Temp: 99.3 F. Pain level now 04/21. --12:23 Mega Kamara R.N. Locked/Released at 03/05/2017 7:08 by Mega Kamara R.N.
--- NOTE | 2017-03-03 12:16 | ED NURSING NOTES ---
Clinical Report - Nurses [facility] [address] [place] [address] 03/03/2017 11:01 Patient: RACHID JULES TRIAGE Triage time 11:10 Mar 03 2017. Acuity: LEVEL 4. Chief Complaint: SKIN PROBLEM and TENDER AREA and INSECT BITE CAROLIN COMA SCORE: Carolin Coma Scale: 15- eyes open spontaneously (4); best verbal response- oriented x 4 (5); best motor response- obeys commands (6). --11:21 Mega Kamara R.N. 11:18 03/03/17. BP: 122/82. HR: 92. RR: 18. O2 saturation: 99%. Temp: 99.3 F. Pain level now 8/10. --11:21 Mega Kamara R.N. Weight: 97.5 kg stated. Height/Length: 64 inches Per Patient. BMI: 36.9. --11:17 Mega Kamara R.N. Medications None. --11:19 Mega Kamara R.N. Allergies No Known Drug Allergy. --11:19 Mega Kamara R.N. History Arrived by private vehicle. Historian: patient. Accompanied by family. Reported as located on the right ring finger. Onset. (2 weeks). It is described as painful. No fever, muscle aches, headache, cough or difficulty breathing. No itching or weakness. 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 PAST MEDICAL HX: No history of asthma, diabetes mellitus, heart disease or lung disease. Immunizations: up-to-date. Last normal menstrual period- February 21. SOCIAL HX: Current every day heavy tobacco smoker (cigarette)- less than 1 pack per day. History of drug use: marijuana. No alcohol use. SELF HARM ASSESSMENT: A self harm assessment was performed. The patient answered "no" to the question "Have you recently felt down, depressed, or hopeless?" and "Do you have thoughts of harming or killing yourself?". FALL RISK ASSESSMENT: Fall risk assessment completed. No fall risk identified. NUTRITIONAL RISK ASSESSMENT: The nutritional risk assessment revealed no deficiencies. FUNCTIONAL ASSESSMENT: Functional assessment: no impairments noted. LEARNING NEEDS ASSESSMENT: The learning needs assessment revealed no barriers. ABUSE ASSESSMENT: Abuse assessment: (yes) The patient was asked "Do you feel safe in your home?". SKIN INTEGRITY ASSESSMENT: Skin integrity risk assessment completed. No skin integrity risk identified. --11: Mega Kamara R.N. PROBLEMS: Nausea. Leukocytosis. Pharyngitis. Abdominal Pain. --11:20 Mega Kamara R.N. ADDITIONAL SURGERIES: no known surgeries. Interventions ID band on patient. --11: Mega Kamara R.N. PHYSICAL ASSESSMENT Ambulatory to room. GENERAL / NEURO / PSYCH: Alert. The patient does not appear to be in acute distress. Oriented X 4. HEENT: Pupils equal, round and reactive to light. Mucous membranes are pink. RESPIRATORY: Respirations not labored. Breath sounds within normal limits. CVS: Capillary refill less than 2 seconds. Pulses within normal limits. GI / : Abdomen nontender. SKIN: Skin is warm and dry. Blister present. Swelling present. --11: Mega Kamara R.N. NURSING PROGRESS NOTES The initial plan of care for this patient includes an assessment with efforts to address patient positioning, appropriate ambient lighting and comfortable environmental temperature. Pulse oximeter and NIBP monitor placed on patient. Patient gowned. Reassurance given. Call light placed in reach. Side rails up x 1. Bed placed in lowest position. Brakes of bed on. --11: Mega Kamara R.N. 12:19 03/03/2017 Bactrim DS (Sulfamethoxazole-TMP DS) PO Tablets 1 tab given. Allergies verified and confirmed 5 rights. --12:19 Mega Kamara R.N. DISPOSITION / DISCHARGE Departure time: :Mar 03 2017. Condition at departure: improved. No learning barriers present. Discharge instructions provided and reviewed with the patient. Reviewed warnings. Reviewed medication(s). Treatments reviewed. Reviewed referrals. Patient verbalized understanding. Written instructions provided in Maldivian. The patient was discharged home and accompanied by parent. She left the Emergency Department ambulatory and via private vehicle. Parent driving. --12:23 Mega Kamara R.N. 11:18 03/03/17. BP: 122/82. HR: 92. RR: 18. O2 saturation: 99%. Temp: 99.3 F. Pain level now 04/21. --12:23 Mega Kamara R.N. Locked/Released at 03/05/2017 7:08 by Mega Kamara R.N.
--- NOTE | 2017-03-03 12:16 | ED ORDER SUMMARY ---
..... Patient: RACHID JULES OrderSheet [facility] VisitID: [id number] [place] [address] 22y, F Registration Date/Time: 03/03/2017 ORDER SHEET Weight: 97.5 kg (stated) Allergies: No Known Drug Allergy GENERAL ORDERS: MEDICATION ORDERS: Bactrim DS PO (Tablet 800-160 mg) 1 tab (NOW) (12:14 03/03/2017 Apple AU) (12:19 Yuan Mosqueda) IV FLUIDS: ORDER SHEET NOTES: [Electronically signed by Dai Leiva MD (21:00 03/03/2017)] [Electronically signed by Mega Kamara R.N. (07:08 03/05/2017)] [Electronically locked/signed by Mega Kamara R.N. (07:08 03/05/2017)]
--- NOTE | 2017-03-05 07:08 | ED DISCHARGE INSTRUCTIONS ---
Patient: RACHID JULES General Instructions [facility] VisitID: [id number] [place] [address] 22y, F Registration Date/Time: 03/03/2017 Cellulitis of the right index finger. INSTRUCTIONS Warnings: GENERAL WARNINGS: Return or contact your physician immediately if your condition worsens or changes unexpectedly, if not improving as expected, or if other problems arise. Prescription Medications: Bactrim DS 800 mg / 160 mg: take 1 tablet orally every 12 hours for 7 days. No refill. Substitution is permissible. Follow-up: Follow up with your doctor in seven days if not better. Understanding of the discharge instructions verbalized by patient. ADDITIONAL INFORMATION Cellulitis You have an infection of the skin known as cellulitis. This usually starts with a scrape, cut, insect bite, blister or other opening in the skin which becomes infected. This is a serious condition. It must be watched closely to be sure the infection is not spreading. With antibiotic treatment, the size of the red area will gradually shrink in size until the skin returns to normal. This will take 7-10 days. The red area should never increase in size once the antibiotic medicine has been started. Occasionally, an infection will be resistant to one antibiotic and another one will have to be used. Home Care: 1) Limit the use of the affected part, since excess movement can cause the infection to spread. 2) If the infection is on your leg, walk as little as possible during the first few days of the treatment. Keep your leg elevated while sitting. This will reduce swelling. 3) Take all of the antibiotic medicine exactly as directed until it is gone. Be careful not to miss any doses, especially during the first seven days. Follow Up with your doctor or this facility as directed. Check the infected area daily for the warning signs listed below. Get Prompt Medical Attention if any of the following occur: -- Spreading area of redness -- Increasing swelling or pain -- Appearance of pus or drainage -- Fever over 100.4 F (38.0 C) oral, or over 101.4 F (38.6 C) rectal, after two days on antibiotics You have been given the following additional information: Cellulitis (Electronically signed by Dai Leiva MD 03/03/2017 21:00)
--- NOTE | 2017-03-05 07:08 | ED DISCHARGE INSTRUCTIONS ---
Patient: RACHID JULES General Instructions [facility] VisitID: [id number] [place] [address] 22y, F Registration Date/Time: 03/03/2017 Cellulitis of the right index finger. INSTRUCTIONS Warnings: GENERAL WARNINGS: Return or contact your physician immediately if your condition worsens or changes unexpectedly, if not improving as expected, or if other problems arise. Prescription Medications: Bactrim DS 800 mg / 160 mg: take 1 tablet orally every 12 hours for 7 days. No refill. Substitution is permissible. Follow-up: Follow up with your doctor in seven days if not better. Understanding of the discharge instructions verbalized by patient. ADDITIONAL INFORMATION Cellulitis You have an infection of the skin known as cellulitis. This usually starts with a scrape, cut, insect bite, blister or other opening in the skin which becomes infected. This is a serious condition. It must be watched closely to be sure the infection is not spreading. With antibiotic treatment, the size of the red area will gradually shrink in size until the skin returns to normal. This will take 7-10 days. The red area should never increase in size once the antibiotic medicine has been started. Occasionally, an infection will be resistant to one antibiotic and another one will have to be used. Home Care: 1) Limit the use of the affected part, since excess movement can cause the infection to spread. 2) If the infection is on your leg, walk as little as possible during the first few days of the treatment. Keep your leg elevated while sitting. This will reduce swelling. 3) Take all of the antibiotic medicine exactly as directed until it is gone. Be careful not to miss any doses, especially during the first seven days. Follow Up with your doctor or this facility as directed. Check the infected area daily for the warning signs listed below. Get Prompt Medical Attention if any of the following occur: -- Spreading area of redness -- Increasing swelling or pain -- Appearance of pus or drainage -- Fever over 100.4 F (38.0 C) oral, or over 101.4 F (38.6 C) rectal, after two days on antibiotics You have been given the following additional information: Cellulitis (Electronically signed by Dai Leiva MD 03/03/2017 21:00)
--- NOTE | 2017-03-05 07:08 | ED MAR SUMMARY ---
..... Medication Administration Record [facility] [address] [place] [address] Patient: RACHID JULES Visit ID: [id number] 22y, F Weight: 97.5 kg Height/Length: 64 in BMI: 36.9 ALLERGIES: No Known Drug Allergy Given 12:19 03/03/2017 Mega Kamara R.N. Medication Administered: BACTRIM DS [PO] (SULFAMETHOXAZOLE-TMP DS), Dose: 1 tab Tablets PO. Medication Ordered: Bactrim DS PO (Tablet 800-160 mg) 1 tab (NOW).
--- NOTE | 2017-03-05 07:08 | ED MED RECONCILIATION SUMMARY ---
Patient: RACHID JULES Medication Reconciliation Report [facility] VisitID: [id number] [address] [place] [address] 22y, F Registration Date/Time: 03/03/2017 Weight: 97.5 kg Height/Length: 64 in. BMI: 36.9 ALLERGIES: No Known Drug Allergy The patient's Home Medications are listed below: NONE. The source(s) of the original Home Medication information: Not obtained. The following Medications were given to the patient in the Emergency Department: Bactrim DS [PO] PO 1 tab, administered: 03/03/2017 12:19:00 PM The following Medications were prescribed to the patient: Bactrim DS 800 mg / 160 mg: take 1 tablet orally every 12 hours for 7 days. No refill. Substitution is permissible. -- Dai Leiva MD
--- NOTE | 2017-03-05 07:08 | ED MED RECONCILIATION SUMMARY ---
Patient: RACHID JULES Medication Reconciliation Report [facility] VisitID: [id number] [address] [place] [address] 22y, F Registration Date/Time: 03/03/2017 Weight: 97.5 kg Height/Length: 64 in. BMI: 36.9 ALLERGIES: No Known Drug Allergy The patient's Home Medications are listed below: NONE. The source(s) of the original Home Medication information: Not obtained. The following Medications were given to the patient in the Emergency Department: Bactrim DS [PO] PO 1 tab, administered: 03/03/2017 12:19:00 PM The following Medications were prescribed to the patient: Bactrim DS 800 mg / 160 mg: take 1 tablet orally every 12 hours for 7 days. No refill. Substitution is permissible. -- Dai Leiva MD
--- NOTE | 2017-03-05 07:08 | ED MAR SUMMARY ---
..... Medication Administration Record [facility] [address] [place] [address] Patient: RACHID JULES Visit ID: [id number] 22y, F Weight: 97.5 kg Height/Length: 64 in BMI: 36.9 ALLERGIES: No Known Drug Allergy Given 12:19 03/03/2017 Mega Kamara R.N. Medication Administered: BACTRIM DS [PO] (SULFAMETHOXAZOLE-TMP DS), Dose: 1 tab Tablets PO. Medication Ordered: Bactrim DS PO (Tablet 800-160 mg) 1 tab (NOW).
== END 2017-03-03 12:22 | disposition home or self-care (01) ==
LOC: ED SRH 10:59
DX: L03.011 Cellulitis of right finger (principal)

== ENCOUNTER 2017-03-05 11:36 | Emergency (ER) | payer OTHER ==
--- NOTE | 2017-03-05 12:36 | ED CLINICAL REPORT ---
Clinical Report - Physicians/Mid Levels [facility] [address] [place] [address] 03/05/2017 11:37 Patient: RACHID JULES Arrived- By private vehicle. Historian- patient. HISTORY OF PRESENT ILLNESS Chief Complaint: BOIL. This started about16 days ago and is still present. It was gradual in onset. It is described as itchy. It has been located on the right index finger. A possible cause has been identified (infeciton). (Pt states contrary of other history that there was no foreign body/thorn suspected.). Recent medical care: The patient was seen recently at this facility in the emergency department. ( Ms Jules was seen 2 days ago in this ED. There was an empty vesicle. She was started on Septra.). REVIEW OF SYSTEMS No fever or chills. PAST HISTORY PCP: None PROBLEMS: Cellulitis. Nausea. Leukocytosis. Pharyngitis. Abdominal Pain. SOCIAL HISTORY Current every day smoker. ADDITIONAL NOTES The nursing notes have been reviewed. PHYSICAL EXAM Vital Signs: 03/05/2017 11:43 BP: 129/80. HR: 105. RR: 20. O2 saturation: 98%. Temp: 98.4 F. Pain level now: 8/10. Appearance: Alert. No acute distress. Skin: Single small abscess (8 mm pustule on pipj of R second finger). Rash present on the right index finger. PROGRESS AND PROCEDURES Incision & Drainage of Abscess: The abscess is located in the right index finger. Abscess Recheck: Purulent exudate present. Local anesthesia provided using 1% lidocaine. The cavity was irrigated with saline and the abscess was incised with a #11 surgical blade. A small amount of pus was drained. Sample obtained for cultures. (The previously empty vesicle had filled with pus. I unroofed it. there was a granulating base which I gently debrided.). Disposition: Discharged. Condition: stable. CLINICAL IMPRESSION Single superficial abscess to the right hand. INSTRUCTIONS (SOAK R HAND THREE TIMES A DAY A PLAIN WARM WATER. FULL FLEX AND EXTENSION OF WHOLE HAND IMMEDIATE RECHECK IF WORSE. CONTINUE THE BACTRIM ESTABLISH PRIMARY CARE. WOUND CHECK 2-3.). Follow-up: Follow up with doctor in three days. Reason for referral: [facility]. Understanding of the discharge instructions verbalized by patient. (Electronically signed by Rich Gracia MD 03/07/2017 12:33)
--- NOTE | 2017-03-05 12:36 | ED CLINICAL REPORT ---
Clinical Report - Physicians/Mid Levels [facility] [address] [place] [address] 03/05/2017 11:37 Patient: RACHID JULES Arrived- By private vehicle. Historian- patient. HISTORY OF PRESENT ILLNESS Chief Complaint: BOIL. This started about16 days ago and is still present. It was gradual in onset. It is described as itchy. It has been located on the right index finger. A possible cause has been identified (infeciton). (Pt states contrary of other history that there was no foreign body/thorn suspected.). Recent medical care: The patient was seen recently at this facility in the emergency department. ( Ms Jules was seen 2 days ago in this ED. There was an empty vesicle. She was started on Septra.). REVIEW OF SYSTEMS No fever or chills. PAST HISTORY PCP: None PROBLEMS: Cellulitis. Nausea. Leukocytosis. Pharyngitis. Abdominal Pain. SOCIAL HISTORY Current every day smoker. ADDITIONAL NOTES The nursing notes have been reviewed. PHYSICAL EXAM Vital Signs: 03/05/2017 11:43 BP: 129/80. HR: 105. RR: 20. O2 saturation: 98%. Temp: 98.4 F. Pain level now: 8/10. Appearance: Alert. No acute distress. Skin: Single small abscess (8 mm pustule on pipj of R second finger). Rash present on the right index finger. PROGRESS AND PROCEDURES Incision & Drainage of Abscess: The abscess is located in the right index finger. Abscess Recheck: Purulent exudate present. Local anesthesia provided using 1% lidocaine. The cavity was irrigated with saline and the abscess was incised with a #11 surgical blade. A small amount of pus was drained. Sample obtained for cultures. (The previously empty vesicle had filled with pus. I unroofed it. there was a granulating base which I gently debrided.). Disposition: Discharged. Condition: stable. CLINICAL IMPRESSION Single superficial abscess to the right hand. INSTRUCTIONS (SOAK R HAND THREE TIMES A DAY A PLAIN WARM WATER. FULL FLEX AND EXTENSION OF WHOLE HAND IMMEDIATE RECHECK IF WORSE. CONTINUE THE BACTRIM ESTABLISH PRIMARY CARE. WOUND CHECK 2-3.). Follow-up: Follow up with doctor in three days. Reason for referral: [facility]. Understanding of the discharge instructions verbalized by patient. (Electronically signed by Rich Gracia MD 03/07/2017 12:33)
--- NOTE | 2017-03-05 12:37 | ED ORDER SUMMARY ---
..... Patient: RACHID JULES OrderSheet [facility] VisitID: [id number] [address] [place] [address] 22y, F Registration Date/Time: 03/05/2017 ORDER SHEET Weight: 113.3 kg (stated) Allergies: No Known Drug Allergy GENERAL ORDERS: Culture, Wound Surface (Finger) (swab) (R ring finger) Urgent (12:29 03/05/2017 Emili AU) (k 12:46 [facility]) (12:57 desmond Mosqueda) MEDICATION ORDERS: IV FLUIDS: ORDER SHEET NOTES: [Electronically signed by Enma Galicia R.N. (14:04 03/05/2017)] [Electronically signed by Rich Gracia MD (12:33 03/07/2017)] [Electronically locked/signed by Enma Galicia R.N. (14:04 03/05/2017)]
--- NOTE | 2017-03-05 12:37 | ED NURSING NOTES ---
Clinical Report - Nurses [facility] [address] [place] [address] 03/05/2017 11:37 Patient: RACHID JULES TRIAGE Acuity: LEVEL 4. Chief Complaint: RECHECK OF WOUND. Alert. No acute distress. SEPSIS SCREEN: Sepsis Screen. Negative (no infection suspected/documented). KAYY COMA SCORE: [place] Coma Scale: 15- eyes open spontaneously (4); best verbal response- oriented x 4 (5); best motor response- obeys commands (6). --11:46 Enma Galicia R.N. 11:43 03/05/17. BP: 129/80. HR: 105. RR: 20. O2 saturation: 98% on room air. Temp: 98.4 F (oral). Pain level now: 04/21. --11:46 Enma Galicia R.N. Weight: 113.3 kg stated. Height/Length: 64 inches Per Patient. BMI: 42.9. --11:44 Enma Galicia R.N. Medications None. --11:44 Enma Galicia R.N. Allergies No Known Drug Allergy. --11:45 Enma Galicia R.N. History Arrived by private vehicle. Historian: patient. Accompanied by (boyfriend). Primary physician (none). Location: right fourth finger. Previous treatment: Previously seen in ED two days ago. PO antibiotic given in ED. Prescription given for antibiotic. (bactrim). SOCIAL HX: Current every day heavy tobacco smoker- less than 1 pack per day. History of heavy drug use: marijuana. No alcohol use. FALL RISK ASSESSMENT: Fall risk assessment completed. No fall risk identified. NUTRITIONAL RISK ASSESSMENT: The nutritional risk assessment revealed no deficiencies. FUNCTIONAL ASSESSMENT: Functional assessment: no impairments noted. LEARNING NEEDS ASSESSMENT: The learning needs assessment revealed no barriers. SKIN INTEGRITY ASSESSMENT: Skin integrity risk assessment completed. No skin integrity risk identified. --11:46 Enma Galicia R.N. PROBLEMS: Cellulitis. Nausea. Leukocytosis. Pharyngitis. Abdominal Pain. --11:45 Enma Galicia R.N. Assessment GENERAL / NEURO / PSYCH: Alert. Oriented X 4. Appears in no acute distress. Patient appears calm and cooperative. RESPIRATORY: Respirations not labored. CVS: Capillary refill less than 2 seconds. GI / : Abdomen soft. SKIN: Mucous membranes are pink. Skin is warm and dry. --11:46 Enma Galicia R.N. Interventions ID band on patient. To treatment room. --11:46 Enma Galicia R.N. PHYSICAL ASSESSMENT Ambulatory to room. GENERAL / NEURO / PSYCH: Alert. Oriented X 4. Appears in no acute distress. EXTREMITIES: Extremity pulses are within normal limits. Capillary refill is less than 2 seconds in the extremities. Sensation intact in extremities. SKIN: Skin is warm and dry. --11:47 Enma Galicia R.N. NURSING PROGRESS NOTES 11:47 03/05/17. Two patient identifiers checked. Call light placed in reach. Bed placed in lowest position. Brakes of bed on. Patient ready for evaluation- chart flagged and ED physician notified. --11:47 Enma Galicia R.N. 13:05 late entry -. Applied clean dressing consisting of Band-Aid, following the application of antibiotic ointment (bacitracin). --14:03 Enma Galicia R.N. DISPOSITION / DISCHARGE Departure time: 13:10 Mar 05 2017. Condition at departure: improved and stable. No learning barriers present. Reviewed wound care and skin care instructions. Patient verbalized understanding. Written instructions provided in Tanzanian. The patient was discharged by the physician. She was discharged home and accompanied by operations coordinator. She left the Emergency Department ambulatory and via private vehicle. --14:02 Enma Galicia R.N. Locked/Released at 03/05/2017 14:04 by Enma Galicia R.N.
--- NOTE | 2017-03-05 12:37 | ED ORDER SUMMARY ---
..... Patient: RACHID JULES OrderSheet [facility] VisitID: [id number] [address] [place] [address] 22y, F Registration Date/Time: 03/05/2017 ORDER SHEET Weight: 113.3 kg (stated) Allergies: No Known Drug Allergy GENERAL ORDERS: Culture, Wound Surface (Finger) (swab) (R ring finger) Urgent (12:29 03/05/2017 Emili AU) (k 12:46 [facility]) (12:57 desmond Mosqueda) MEDICATION ORDERS: IV FLUIDS: ORDER SHEET NOTES: [Electronically signed by Enma Galicia R.N. (14:04 03/05/2017)] [Electronically signed by Rich Gracia MD (12:33 03/07/2017)] [Electronically locked/signed by Enma Galicia R.N. (14:04 03/05/2017)]
--- NOTE | 2017-03-05 12:37 | ED NURSING NOTES ---
Clinical Report - Nurses [facility] [address] [address] 03/05/2017 11:37 Patient: RACHID JULES TRIAGE Acuity: LEVEL 4. Chief Complaint: RECHECK OF WOUND. Alert. No acute distress. SEPSIS SCREEN: Sepsis Screen. Negative (no infection suspected/documented). KAYY COMA SCORE: [place] Coma Scale: 15- eyes open spontaneously (4); best verbal response- oriented x 4 (5); best motor response- obeys commands (6). --11:46 Enma Galicia R.N. 11:43 03/05/17. BP: 129/80. HR: 105. RR: 20. O2 saturation: 98% on room air. Temp: 98.4 F (oral). Pain level now: 04/21. --11:46 Enma Galicia R.N. Weight: 113.3 kg stated. Height/Length: 64 inches Per Patient. BMI: 42.9. --11:44 Enma Galicia R.N. Medications None. --11:44 Enma Galicia R.N. Allergies No Known Drug Allergy. --11:45 Enma Galicia R.N. History Arrived by private vehicle. Historian: patient. Accompanied by (boyfriend). Primary physician (none). Location: right fourth finger. Previous treatment: Previously seen in ED two days ago. PO antibiotic given in ED. Prescription given for antibiotic. (bactrim). SOCIAL HX: Current every day heavy tobacco smoker- less than 1 pack per day. History of heavy drug use: marijuana. No alcohol use. FALL RISK ASSESSMENT: Fall risk assessment completed. No fall risk identified. NUTRITIONAL RISK ASSESSMENT: The nutritional risk assessment revealed no deficiencies. FUNCTIONAL ASSESSMENT: Functional assessment: no impairments noted. LEARNING NEEDS ASSESSMENT: The learning needs assessment revealed no barriers. SKIN INTEGRITY ASSESSMENT: Skin integrity risk assessment completed. No skin integrity risk identified. --11:46 Enma Galicia R.N. PROBLEMS: Cellulitis. Nausea. Leukocytosis. Pharyngitis. Abdominal Pain. --11:45 Enma Galicia R.N. Assessment GENERAL / NEURO / PSYCH: Alert. Oriented X 4. Appears in no acute distress. Patient appears calm and cooperative. RESPIRATORY: Respirations not labored. CVS: Capillary refill less than 2 seconds. GI / : Abdomen soft. SKIN: Mucous membranes are pink. Skin is warm and dry. --11:46 Enma Galicia R.N. Interventions ID band on patient. To treatment room. --11:46 Enma Galicia R.N. PHYSICAL ASSESSMENT Ambulatory to room. GENERAL / NEURO / PSYCH: Alert. Oriented X 4. Appears in no acute distress. EXTREMITIES: Extremity pulses are within normal limits. Capillary refill is less than 2 seconds in the extremities. Sensation intact in extremities. SKIN: Skin is warm and dry. --11:47 Enma Galicia R.N. NURSING PROGRESS NOTES 11:47 03/05/17. Two patient identifiers checked. Call light placed in reach. Bed placed in lowest position. Brakes of bed on. Patient ready for evaluation- chart flagged and ED physician notified. --11:47 Enma Galicia R.N. 13:05 late entry -. Applied clean dressing consisting of Band-Aid, following the application of antibiotic ointment (bacitracin). --14:03 Enma Galicia R.N. DISPOSITION / DISCHARGE Departure time: 13:10 Mar 05 2017. Condition at departure: improved and stable. No learning barriers present. Reviewed wound care and skin care instructions. Patient verbalized understanding. Written instructions provided in Uzbek. The patient was discharged by the physician. She was discharged home and accompanied by motor vehicle license clerk. She left the Emergency Department ambulatory and via private vehicle. --14:02 Enma Galicia R.N. Locked/Released at 03/05/2017 14:04 by Enma Galicia R.N.
--- NOTE | 2017-03-07 12:34 | ED MED RECONCILIATION SUMMARY ---
Patient: RACHID JULES Medication Reconciliation Report [facility] VisitID: [id number] [address] [place] [place] [address] 22y, F Registration Date/Time: 03/05/2017 Weight: 113.3 kg Height/Length: 64 in. BMI: 42.9 ALLERGIES: No Known Drug Allergy The patient's Home Medications are listed below: NONE. The source(s) of the original Home Medication information: Not obtained. The following Medications were given to the patient in the Emergency Department: None. The following Medications were prescribed to the patient: None.
--- NOTE | 2017-03-07 12:34 | ED DISCHARGE INSTRUCTIONS ---
Patient: RACHID JULES General Instructions [facility] VisitID: [id number] [place] [address] 22y, F Registration Date/Time: 03/05/2017 Single superficial abscess to the right hand. INSTRUCTIONS (SOAK R HAND THREE TIMES A DAY A PLAIN WARM WATER. FULL FLEX AND EXTENSION OF WHOLE HAND IMMEDIATE RECHECK IF WORSE. CONTINUE THE BACTRIM ESTABLISH PRIMARY CARE. WOUND CHECK 2-3.). Follow-up: Follow up with doctor in three days. Reason for referral: [facility]. Understanding of the discharge instructions verbalized by patient. ADDITIONAL INFORMATION Abscess [Incision & Drainage] An abscess (sometimes called a boil) occurs when bacteria get trapped under the skin and begin to grow. Pus forms inside the abscess as the body responds to the bacteria. An abscess can occur with an insect bite, ingrown hair, blocked oil gland, pimple, cyst, or puncture wound. Treatment of your abscess has required an incision to drain the pus. If the abscess pocket was large, a gauze packing may have been inserted. This will need to be removed and possibly replaced on your next visit. Antibiotics are not required in the treatment of a simple abscess, unless the infection is spreading into the skin around the wound (known as cellulitis). Healing of the wound will take about one to two weeks depending on the size of the abscess. Healthy tissue will grow from the bottom and sides of the opening until it seals over. Home Care: The wound may drain for the first two days. Cover the wound with a clean dry dressing. If the dressing becomes soaked with blood or pus, change it. If a gauze packing was placed inside the abscess cavity, you may be advised to remove it yourself. You may do this in the shower. Once the packing is removed, you should wash the area in the shower or bath 3 to 4 times a day, until the skin opening has closed. If you were prescribed antibiotics, take them as directed until they are all gone. You may use acetaminophen (Tylenol) or ibuprofen (Motrin, Advil) to control pain, unless another pain medicine was prescribed. [ NOTE: If you have liver disease or ever had a stomach ulcer, talk with your doctor before using these medicines.] Follow Up with your doctor as advised by our staff. If a gauze packing was inserted in your wound, it should be removed in 1-2 days. Check your wound every day for the signs of worsening infection listed below. Get Prompt Medical Attention if any of the following occur: Increasing redness or swelling Red streaks in the skin leading away from the wound Increasing local pain or swelling Continued pus draining from the wound two days after treatment Fever of 100.4F (38C) or higher, or as directed by your healthcare provider You have been given the following additional information: Abscess, Incision And Drainage (Electronically signed by Rich Gracia MD 03/07/2017 12:33)
--- NOTE | 2017-03-07 12:34 | ED DISCHARGE INSTRUCTIONS ---
Patient: RACHID JULES General Instructions [facility] VisitID: [id number] [place] [address] 22y, F Registration Date/Time: 03/05/2017 Single superficial abscess to the right hand. INSTRUCTIONS (SOAK R HAND THREE TIMES A DAY A PLAIN WARM WATER. FULL FLEX AND EXTENSION OF WHOLE HAND IMMEDIATE RECHECK IF WORSE. CONTINUE THE BACTRIM ESTABLISH PRIMARY CARE. WOUND CHECK 2-3.). Follow-up: Follow up with doctor in three days. Reason for referral: [facility]OUND [facility]. Understanding of the discharge instructions verbalized by patient. ADDITIONAL INFORMATION Abscess [Incision & Drainage] An abscess (sometimes called a boil) occurs when bacteria get trapped under the skin and begin to grow. Pus forms inside the abscess as the body responds to the bacteria. An abscess can occur with an insect bite, ingrown hair, blocked oil gland, pimple, cyst, or puncture wound. Treatment of your abscess has required an incision to drain the pus. If the abscess pocket was large, a gauze packing may have been inserted. This will need to be removed and possibly replaced on your next visit. Antibiotics are not required in the treatment of a simple abscess, unless the infection is spreading into the skin around the wound (known as cellulitis). Healing of the wound will take about one to two weeks depending on the size of the abscess. Healthy tissue will grow from the bottom and sides of the opening until it seals over. Home Care: The wound may drain for the first two days. Cover the wound with a clean dry dressing. If the dressing becomes soaked with blood or pus, change it. If a gauze packing was placed inside the abscess cavity, you may be advised to remove it yourself. You may do this in the shower. Once the packing is removed, you should wash the area in the shower or bath 3 to 4 times a day, until the skin opening has closed. If you were prescribed antibiotics, take them as directed until they are all gone. You may use acetaminophen (Tylenol) or ibuprofen (Motrin, Advil) to control pain, unless another pain medicine was prescribed. [ NOTE: If you have liver disease or ever had a stomach ulcer, talk with your doctor before using these medicines.] Follow Up with your doctor as advised by our staff. If a gauze packing was inserted in your wound, it should be removed in 1-2 days. Check your wound every day for the signs of worsening infection listed below. Get Prompt Medical Attention if any of the following occur: Increasing redness or swelling Red streaks in the skin leading away from the wound Increasing local pain or swelling Continued pus draining from the wound two days after treatment Fever of 100.4F (38C) or higher, or as directed by your healthcare provider You have been given the following additional information: Abscess, Incision And Drainage (Electronically signed by Rich Gracia MD 03/07/2017 12:33)
--- NOTE | 2017-03-07 12:34 | ED MAR SUMMARY ---
..... Medication Administration Record [facility] [address] [place], [place] [id number] Patient: RACHID JULES Visit ID: [id number] 22y, F Weight: 113.3 kg Height/Length: 64 in BMI: 42.9 ALLERGIES: No Known Drug Allergy
--- NOTE | 2017-03-07 12:34 | ED MAR SUMMARY ---
..... Medication Administration Record [facility] [address] [place], [place] [id number] Patient: RACHID JULES Visit ID: [id number] 22y, F Weight: 113.3 kg Height/Length: 64 in BMI: 42.9 ALLERGIES: No Known Drug Allergy
--- NOTE | 2017-03-07 12:34 | ED MED RECONCILIATION SUMMARY ---
Patient: RACHID JULES Medication Reconciliation Report [facility] VisitID: [id number] [address] [place] [address] 22y, F Registration Date/Time: 03/05/2017 Weight: 113.3 kg Height/Length: 64 in. BMI: 42.9 ALLERGIES: No Known Drug Allergy The patient's Home Medications are listed below: NONE. The source(s) of the original Home Medication information: Not obtained. The following Medications were given to the patient in the Emergency Department: None. The following Medications were prescribed to the patient: None.
== END 2017-03-05 13:10 | disposition home or self-care (01) ==
LOC: ED SRH 11:36
DX: L02.511 Cutaneous abscess of right hand (principal); F17.200 Nicotine dependence, unspecified, uncomplicated
CPT/HCPCS: 90070; 90131; 90309; 91672

== ENCOUNTER 2017-03-08 19:40 | Emergency (ER) | payer OTHER ==
--- NOTE | 2017-03-08 19:50 | ED CLINICAL REPORT ---
Clinical Report - Physicians/Mid Levels [facility] [address] [place] [address] 03/08/2017 19:40 Patient: RACHID JULES Time Seen: 19:53 Jonathan 2016. Arrived- By private vehicle. Historian- patient and significant other. HISTORY OF PRESENT ILLNESS Chief Complaint: SKIN RASH. This started 2- 3 weeks and is still present. It is described as painful (resolving). It has been located on the right upper extremity (r. 4th digit). (Patient reports over the last few weeks she has had pain to her right fourth digit, and his previous event seen in the emergency department for an infection of her right fourth digit, and is currently taking Bactrim. She reports no fevers, improvement of her wound.). REVIEW OF SYSTEMS No difficulty breathing, nausea or difficulty with urination. All systems otherwise negative, except as recorded above. PAST HISTORY Problems: Abscess. Nausea. Leukocytosis. Pharyngitis. Abdominal Pain. Additional Surgeries: no known surgeries. Medications: Ibuprofen Oral. Bactrim Oral. Allergies: No Known Drug Allergy. SOCIAL HISTORY Smoker- current status unknown. History of drug use: marijuana. No alcohol use. ADDITIONAL NOTES The nursing notes have been reviewed. PHYSICAL EXAM Vital Signs: 03/08/2017 19:44 BP: 129/72. HR: 86. RR: 17. O2 saturation: 98%. Temp: 98.5 F. Pain level now: 7/10. Appearance: Alert. ENT: No pharyngeal erythema. Neck: Neck supple. CVS: Normal heart rate and rhythm. Respiratory: No respiratory distress. Breath sounds normal. Skin: Skin warm. Normal skin color. No tender indurated area. Skin rash present- small dorsal mid digit lesion 0.3 by 0.3, no warmth, no lymphagetic streaking. No abscess. Extremities: (full flexion/ extension, and rom, good strength, good distal sensation.). PROGRESS AND PROCEDURES Course of Care: pt seen in ER 03/05, , and had bactrim sensative to her culture. Wound appears great, and a small nature no warmth. Patient is with full range of motion, good sensation. No lymphangitic streaking. Patient to continue using Bactrim. No further workup necessary in the emergency department. No signs of tenosynovitis. Patient is stable. Patient/family counseled. Disposition: Discharged. Condition: good. CLINICAL IMPRESSION Cellulitis (r. 4th digit, resolving). INSTRUCTIONS (continue your medical treatment YOUR antibiotic Bactrim covers the microbes you grew in your wound, which is great. No need to change this. Take for full duration.). OTC Medications: Take OTC medications according to label instructions. Available over the counter. Acetaminophen (available over the counter): take according to label instructions. Motrin (available over the counter): take according to label instructions. (Electronically signed by Josy Ku P.A.-C 03/08/2017 19:56)
--- NOTE | 2017-03-08 19:50 | ED CLINICAL REPORT ---
Clinical Report - Physicians/[facility] [address] [place] [address] 03/08/2017 19:40 Patient: RACHID JULES Time Seen: 19:53 Jonathan 2016. Arrived- By private vehicle. Historian- patient and significant other. HISTORY OF PRESENT ILLNESS Chief Complaint: SKIN RASH. This started 2- 3 weeks and is still present. It is described as painful (resolving). It has been located on the right upper extremity (r. 4th digit). (Patient reports over the last few weeks she has had pain to her right fourth digit, and his previous event seen in the emergency department for an infection of her right fourth digit, and is currently taking Bactrim. She reports no fevers, improvement of her wound.). REVIEW OF SYSTEMS No difficulty breathing, nausea or difficulty with urination. All systems otherwise negative, except as recorded above. PAST HISTORY Problems: Abscess. Nausea. Leukocytosis. Pharyngitis. Abdominal Pain. Additional Surgeries: no known surgeries. Medications: Ibuprofen Oral. Bactrim Oral. Allergies: No Known Drug Allergy. SOCIAL HISTORY Smoker- current status unknown. History of drug use: marijuana. No alcohol use. ADDITIONAL NOTES The nursing notes have been reviewed. PHYSICAL EXAM Vital Signs: 03/08/2017 19:44 BP: 129/72. HR: 86. RR: 17. O2 saturation: 98%. Temp: 98.5 F. Pain level now: 7/10. Appearance: Alert. ENT: No pharyngeal erythema. Neck: Neck supple. CVS: Normal heart rate and rhythm. Respiratory: No respiratory distress. Breath sounds normal. Skin: Skin warm. Normal skin color. No tender indurated area. Skin rash present- small dorsal mid digit lesion 0.3 by 0.3, no warmth, no lymphagetic streaking. No abscess. Extremities: (full flexion/ extension, and rom, good strength, good distal sensation.). PROGRESS AND PROCEDURES Course of Care: pt seen in ER 03/05, , and had bactrim sensative to her culture. Wound appears great, and a small nature no warmth. Patient is with full range of motion, good sensation. No lymphangitic streaking. Patient to continue using Bactrim. No further workup necessary in the emergency department. No signs of tenosynovitis. Patient is stable. Patient/family counseled. Disposition: Discharged. Condition: good. CLINICAL IMPRESSION Cellulitis (r. 4th digit, resolving). INSTRUCTIONS (continue your medical treatment YOUR antibiotic Bactrim covers the microbes you grew in your wound, which is great. No need to change this. Take for full duration.). OTC Medications: Take OTC medications according to label instructions. Available over the counter. Acetaminophen (available over the counter): take according to label instructions. Motrin (available over the counter): take according to label instructions. (Electronically signed by Josy Ku P.A.-C 03/08/2017 19:56)
--- NOTE | 2017-03-08 19:51 | ED NURSING NOTES ---
Clinical Report - Nurses [facility] [address] [place] [address] 03/08/2017 19:40 Patient: RACHID JULES TRIAGE Triage time 19:44. Acuity: LEVEL 4. Chief Complaint: RECHECK OF CELLULITIS. 19:50 03/08/17. Alert. No acute distress. SEPSIS SCREEN: Sepsis Screen. Negative (no infection suspected/documented). CAROLIN COMA SCORE: Carolin Coma Scale: 15- eyes open spontaneously (4); best verbal response- oriented x 4 (5); best motor response- obeys commands (6). --19:50 Sharee Javed R.N. 19:44 03/08/17. BP: 129/72. HR: 86. RR: 17. O2 saturation: 98%. Temp: 98.5 F. Pain level now: 03/21. --19:50 Sharee Javed R.N. Weight: 97.5 kg stated. Height/Length: 64 inches Per Patient. BMI: 36.9. --19:48 Sharee Javed R.N. Medications Bactrim Oral. --19:47 Sharee Javed R.N. Ibuprofen Oral. --19:47 Sharee Javed R.N. Allergies No Known Drug Allergy. --19:47 Sharee Javed R.N. History Arrived by private vehicle. Historian: patient. Location: right fourth finger. She has had redness and drainage from wound and has experienced pain. Previous treatment: Previously seen at this facility three days ago. Incision and drainage of abscess performed. Prescription given and filled for antibiotic. Patient taking as prescribed (bactrim). ( Patient states she has been into this ED twice in the past week to check her abscess. She states she is "almost done with antibiotics and it hasn't gotten too much better"). PAST MEDICAL HX: Tetanus status: up-to-date. Immunizations: up-to-date. Denies current . SOCIAL HX: Heavy tobacco smoker- less than 1 pack per day. History of heavy drug use: marijuana. No alcohol use. FALL RISK ASSESSMENT: Fall risk assessment completed. No fall risk identified. NUTRITIONAL RISK ASSESSMENT: The nutritional risk assessment revealed no deficiencies. FUNCTIONAL ASSESSMENT: Functional assessment: no impairments noted. LEARNING NEEDS ASSESSMENT: The learning needs assessment revealed no barriers. SKIN INTEGRITY ASSESSMENT: Skin integrity risk assessment completed. No skin integrity risk identified. --19:50 Sharee Javed R.N. PROBLEMS: Abscess. Cellulitis. Nausea. Leukocytosis. Pharyngitis. Abdominal Pain. --19:48 Sharee Javed R.N. ADDITIONAL SURGERIES: no known surgeries. Interventions ID band on patient. To treatment room. --19:50 Sharee Javed R.N. PHYSICAL ASSESSMENT 19:50 03/08/17. Ambulatory to room. GENERAL / NEURO / PSYCH: Alert. Oriented X 4. Appears in no acute distress. EXTREMITIES: Extremity pulses are within normal limits. Capillary refill is less than 2 seconds in the extremities. Sensation intact in extremities. ROM of extremities within normal limits. SKIN: Skin is warm and dry. Healing wound. No signs or symptoms of infection. Small area of erythema with tenderness. --19:50 Sharee Javed R.N. NURSING PROGRESS NOTES 19:51 03/08/17. Two patient identifiers checked. Call light placed in reach. Bed placed in lowest position. Brakes of bed on. --19:51 Sharee Javed R.N. DISPOSITION / DISCHARGE 19:55. No learning barriers present. Discharge instructions provided and reviewed with the patient. Treatments reviewed. Patient and information technology technician verbalized understanding. Written instructions provided in [place]. The patient was discharged home and accompanied by information technology technician. She left the Emergency Department ambulatory and via private vehicle. Efficiency Expert driving. --20:01 Sharee Javed R.N. 19:44 03/08/17. BP: 129/72. HR: 86. RR: 17. O2 saturation: 98%. Temp: 98.5 F. Pain level now: 03/21. --20:01 Sharee Javed R.N. Locked/Released at 03/08/2017 20:38 by Sharee Javed R.N.
--- NOTE | 2017-03-08 19:51 | ED NURSING NOTES ---
Clinical Report - Nurses [facility] [address] [place] [address] 03/08/2017 19:40 Patient: RACHID JULES TRIAGE Triage time 19:44. Acuity: LEVEL 4. Chief Complaint: RECHECK OF CELLULITIS. 19:50 03/08/17. Alert. No acute distress. SEPSIS SCREEN: Sepsis Screen. Negative (no infection suspected/documented). CAROLIN COMA SCORE: Carolin Coma Scale: 15- eyes open spontaneously (4); best verbal response- oriented x 4 (5); best motor response- obeys commands (6). --19:50 Sharee Javed R.N. 19:44 03/08/17. BP: 129/72. HR: 86. RR: 17. O2 saturation: 98%. Temp: 98.5 F. Pain level now: 03/21. --19:50 Sharee Javed R.N. Weight: 97.5 kg stated. Height/Length: 64 inches Per Patient. BMI: 36.9. --19:48 Sharee Javed R.N. Medications Bactrim Oral. --19:47 Sharee Javed R.N. Ibuprofen Oral. --19:47 Sharee Javed R.N. Allergies No Known Drug Allergy. --19:47 Sharee Javed R.N. History Arrived by private vehicle. Historian: patient. Location: right fourth finger. She has had redness and drainage from wound and has experienced pain. Previous treatment: Previously seen at this facility three days ago. Incision and drainage of abscess performed. Prescription given and filled for antibiotic. Patient taking as prescribed (bactrim). ( Patient states she has been into this ED twice in the past week to check her abscess. She states she is "almost done with antibiotics and it hasn't gotten too much better"). PAST MEDICAL HX: Tetanus status: up-to-date. Immunizations: up-to-date. Denies current . SOCIAL HX: Heavy tobacco smoker- less than 1 pack per day. History of heavy drug use: marijuana. No alcohol use. FALL RISK ASSESSMENT: Fall risk assessment completed. No fall risk identified. NUTRITIONAL RISK ASSESSMENT: The nutritional risk assessment revealed no deficiencies. FUNCTIONAL ASSESSMENT: Functional assessment: no impairments noted. LEARNING NEEDS ASSESSMENT: The learning needs assessment revealed no barriers. SKIN INTEGRITY ASSESSMENT: Skin integrity risk assessment completed. No skin integrity risk identified. --19:50 Sharee Javed R.N. PROBLEMS: Abscess. Cellulitis. Nausea. Leukocytosis. Pharyngitis. Abdominal Pain. --19:48 Sharee Javed R.N. ADDITIONAL SURGERIES: no known surgeries. Interventions ID band on patient. To treatment room. --19:50 Sharee Javed R.N. PHYSICAL ASSESSMENT 19:50 03/08/17. Ambulatory to room. GENERAL / NEURO / PSYCH: Alert. Oriented X 4. Appears in no acute distress. EXTREMITIES: Extremity pulses are within normal limits. Capillary refill is less than 2 seconds in the extremities. Sensation intact in extremities. ROM of extremities within normal limits. SKIN: Skin is warm and dry. Healing wound. No signs or symptoms of infection. Small area of erythema with tenderness. --19:50 Sharee Javed R.N. NURSING PROGRESS NOTES 19:51 03/08/17. Two patient identifiers checked. Call light placed in reach. Bed placed in lowest position. Brakes of bed on. --19:51 Sharee Javed R.N. DISPOSITION / DISCHARGE 19:55. No learning barriers present. Discharge instructions provided and reviewed with the patient. Treatments reviewed. Patient and seed cleaner operator verbalized understanding. Written instructions provided in [place]. The patient was discharged home and accompanied by seed cleaner operator. She left the Emergency Department ambulatory and via private vehicle. Work Checker driving. --20:01 Sharee Javed R.N. 19:44 03/08/17. BP: 129/72. HR: 86. RR: 17. O2 saturation: 98%. Temp: 98.5 F. Pain level now: 03/21. --20:01 Sharee Javed R.N. Locked/Released at 03/08/2017 20:38 by Sharee Javed R.N.
--- NOTE | 2017-03-08 20:38 | ED MED RECONCILIATION SUMMARY ---
Patient: RACHID JULES Medication Reconciliation Report [facility] VisitID: [id number] [address] [place] [address] 22y, F Registration Date/Time: 03/08/2017 Weight: 97.5 kg Height/Length: 64 in. BMI: 36.9 ALLERGIES: No Known Drug Allergy The patient's Home Medications are listed below: THE FOLLOWING MEDICATIONS NEED TO BE RECONCILED: Bactrim Oral Ibuprofen Oral The source(s) of the original Home Medication information: Not obtained. The following Medications were given to the patient in the Emergency Department: None. The following Medications were prescribed to the patient: Take OTC medications according to label instructions. Available over the counter. -- Josy Ku, P.A.-C Acetaminophen (available over the counter): take according to label instructions. -- Josy Ku, P.A.-C Motrin (available over the counter): take according to label instructions. -- Josy Ku, P.A.-C
--- NOTE | 2017-03-08 20:38 | ED MAR SUMMARY ---
..... Medication Administration Record [facility] [address] [place], [place] [id number] Patient: RACHID JULES Visit ID: [id number] 22y, F Weight: 97.5 kg Height/Length: 64 in BMI: 36.9 ALLERGIES: No Known Drug Allergy
--- NOTE | 2017-03-08 20:38 | ED DISCHARGE INSTRUCTIONS ---
Patient: RACHID JULES General Instructions [facility] VisitID: [id number] [place] [address] 22y, F Registration Date/Time: 03/08/2017 Cellulitis (r. 4th digit, resolving). INSTRUCTIONS (continue your medical treatment YOUR antibiotic Bactrim covers the microbes you grew in your wound, which is great. No need to change this. Take for full duration.). OTC Medications: Take OTC medications according to label instructions. Available over the counter. Acetaminophen (available over the counter): take according to label instructions. Motrin (available over the counter): take according to label instructions. ADDITIONAL INFORMATION Cellulitis You have an infection of the skin known as cellulitis. This usually starts with a scrape, cut, insect bite, blister or other opening in the skin which becomes infected. This is a serious condition. It must be watched closely to be sure the infection is not spreading. With antibiotic treatment, the size of the red area will gradually shrink in size until the skin returns to normal. This will take 7-10 days. The red area should never increase in size once the antibiotic medicine has been started. Occasionally, an infection will be resistant to one antibiotic and another one will have to be used. Home Care: 1) Limit the use of the affected part, since excess movement can cause the infection to spread. 2) If the infection is on your leg, walk as little as possible during the first few days of the treatment. Keep your leg elevated while sitting. This will reduce swelling. 3) Take all of the antibiotic medicine exactly as directed until it is gone. Be careful not to miss any doses, especially during the first seven days. Follow Up with your doctor or this facility as directed. Check the infected area daily for the warning signs listed below. Get Prompt Medical Attention if any of the following occur: -- Spreading area of redness -- Increasing swelling or pain -- Appearance of pus or drainage -- Fever over 100.4 F (38.0 C) oral, or over 101.4 F (38.6 C) rectal, after two days on antibiotics You have been given the following additional information: Cellulitis (Electronically signed by Josy Ku P.A.-C 03/08/2017 19:56)
--- NOTE | 2017-03-08 20:38 | ED MED RECONCILIATION SUMMARY ---
Patient: RACHID JULES Medication Reconciliation Report [facility] VisitID: [id number] [address] [place] [address] 22y, F Registration Date/Time: 03/08/2017 Weight: 97.5 kg Height/Length: 64 in. BMI: 36.9 ALLERGIES: No Known Drug Allergy The patient's Home Medications are listed below: THE FOLLOWING MEDICATIONS NEED TO BE RECONCILED: Bactrim Oral Ibuprofen Oral The source(s) of the original Home Medication information: Not obtained. The following Medications were given to the patient in the Emergency Department: None. The following Medications were prescribed to the patient: Take OTC medications according to label instructions. Available over the counter. -- Josy Ku, P.A.-C Acetaminophen (available over the counter): take according to label instructions. -- Josy Ku, P.A.-C Motrin (available over the counter): take according to label instructions. -- Josy Ku, P.A.-C
--- NOTE | 2017-03-08 20:38 | ED MAR SUMMARY ---
..... Medication Administration Record [facility] [address], [place] [id number] Patient: RACHID JULES Visit ID: [id number] 22y, F Weight: 97.5 kg Height/Length: 64 in BMI: 36.9 ALLERGIES: No Known Drug Allergy
--- NOTE | 2017-03-08 20:38 | ED DISCHARGE INSTRUCTIONS ---
Patient: RACHID JULES General Instructions [facility] VisitID: [id number] [place] [address] 22y, F Registration Date/Time: 03/08/2017 Cellulitis (r. 4th digit, resolving). INSTRUCTIONS (continue your medical treatment YOUR antibiotic Bactrim covers the microbes you grew in your wound, which is great. No need to change this. Take for full duration.). OTC Medications: Take OTC medications according to label instructions. Available over the counter. Acetaminophen (available over the counter): take according to label instructions. Motrin (available over the counter): take according to label instructions. ADDITIONAL INFORMATION Cellulitis You have an infection of the skin known as cellulitis. This usually starts with a scrape, cut, insect bite, blister or other opening in the skin which becomes infected. This is a serious condition. It must be watched closely to be sure the infection is not spreading. With antibiotic treatment, the size of the red area will gradually shrink in size until the skin returns to normal. This will take 7-10 days. The red area should never increase in size once the antibiotic medicine has been started. Occasionally, an infection will be resistant to one antibiotic and another one will have to be used. Home Care: 1) Limit the use of the affected part, since excess movement can cause the infection to spread. 2) If the infection is on your leg, walk as little as possible during the first few days of the treatment. Keep your leg elevated while sitting. This will reduce swelling. 3) Take all of the antibiotic medicine exactly as directed until it is gone. Be careful not to miss any doses, especially during the first seven days. Follow Up with your doctor or this facility as directed. Check the infected area daily for the warning signs listed below. Get Prompt Medical Attention if any of the following occur: -- Spreading area of redness -- Increasing swelling or pain -- Appearance of pus or drainage -- Fever over 100.4 F (38.0 C) oral, or over 101.4 F (38.6 C) rectal, after two days on antibiotics You have been given the following additional information: Cellulitis (Electronically signed by Josy Ku P.A.-C 03/08/2017 19:56)
== END 2017-03-08 19:55 | disposition home or self-care (01) ==
LOC: ED SRH 19:40
DX: L03.011 Cellulitis of right finger (principal)